=== PATIENT | male | born 1985 | race Caucasian/White ===

== ENCOUNTER 2016-12-24 12:24 | Outpatient (CLI) | payer OTHER ==
[2016-12-24] MEDS ORDERED: LIDOCAINE 1% 10 ML MDV ONE (13:06)
[2016-12-24] MEDS ORDERED: GADOPENTETATE DIMEGLUMINE 5 ML VIAL IVP ONE ×3 (13:07→14:02)
[2016-12-24] MEDS ORDERED: IOTHALAMATE MEGLUMINE 50 ML VIAL ONE (13:07)
[2016-12-24] MEDS ORDERED: LIDOCAINE 1% 10 ML MDV SUBQ ONE ×2 (14:00→14:02)
[2016-12-24] MEDS ORDERED: IOTHALAMATE MEGLUMINE 50 ML VIAL IVP ONE ×2 (14:00→14:02)
[2016-12-24] MEDS ORDERED: BUFFERED LIDOCAINE 10 ML SYRINGE IU ONE (14:02)
--- NOTE | 2016-12-24 16:35 | MRI Report ---
EXAM: RIGHT SHOULDER MRI ARTHROGRAM WITH CONTRAST EXAM DATE: 12/24/2016 02:28 PM. CLINICAL HISTORY: Right shoulder pain, not improving. Evaluate for rotator cuff tear. COMPARISON: None. TECHNIQUE: Multiplanar, multisequence T1-weighted and fluid-sensitive sequences of the shoulder after an arthrographic injection of dilute gadolinium, dictated under a separate exam. Other: None. FINDINGS: Acromioclavicular Region: The acromion is type II. The acromioclavicular joint is unremarkable. The c oracoacromial and coracoclavicular ligaments are intact. There is no contrast or fluid in the subacro mial/subdeltoid bursa. Glenohumeral Region: No subluxation. No loose bodies. The articular cartilage is unremarkable. The gl enohumeral ligaments and joint capsule are unremarkable. Bone Marrow: No fracture, marrow edema or bone lesions. Labrum: There is a 1.4 cm multilocular anterior inferior paralabral cyst which does not fill with con trast. Mild T2 hyperintensity through the base of the anterior inferior labrum, although contrast hutchison s not appear to extend into this. Remainder of the labrum appears intact. Biceps Tendon: The long head of the biceps tendon and biceps gildardo are intact. Musculature/Rotator Cuff: 0.9 cm 25-50% partial thickness tear in the distal supraspinatus attachment on the humerus, but is extra-articular and contrast does not extend into the defect. No edema or fat ty atrophy. Other: The subcutaneous tissues are unremarkable. IMPRESSION: 1. 1.4 cm anterior inferior paralabral cyst with mild T2 signal abnormality in the adjacent labrum, b ut no extension of contrast. Findings concerning for a labral tear, despite absence of contrast exten carrie. This may represent a chronic labral tear which has partially healed with granulation tissue. 2. Partial thickness tear distal supraspinatus attachment on the humerus appears extra-articular. Con trast does not extend into the defect. [facility] MUSCULOSKELETAL [facility]IOLOGY SECTION Referring Provider Line: [phone] SITE ID: [id number]
--- NOTE | 2016-12-24 17:33 | XRAY Report ---
RIGHT SHOULDER ARTHROGRAM: 12/24/2016 No comparison. INDICATION: Concern for rotator cuff tear not improving with treatment. TECHNIQUE - FINDINGS: Slasher Runner views demonstrate a right shoulder in normal alignment. Risks and benefits were discussed with the patient and he desired to proceed. A standard time/date w as performed prior to the procedure. The patient was prepped and draped in normal sterile fashion. Six mL of nonbuffered 1% lidocaine without epinephrine were injection into the soft tissues. The joint was accessed using a 20-gauge spinal needle, and 12 mL of fluid were injected into the righ t shoulder joint capsule under fluoroscopic guidance. The fluid contained 10 mL buffered 1% lidocaine, 10% Conray, and 0.1 mL Gadovist. There was no appreciable blood loss during the procedure. There were no immediate complications, and the patient was escorted to the MRI suite for further imaging. IMPRESSION: SUCCESSFUL RIGHT SHOULDER ARTHROGRAM. JOB #: [id number] EXT JOB #:[id number]
== END 2016-12-24 12:25 | disposition home or self-care (01) ==
LOC: DI 12:24
PROVIDERS: ATTEND Nurse Practitioner Family
DX: S43.431A Superior glenoid labrum lesion of right shoulder, initial encounter (principal); M75.101 Unspecified rotator cuff tear or rupture of right shoulder, not specified as traumatic
CPT/HCPCS: 23350; 73222; 77002; Q9961

== ENCOUNTER 2017-02-16 03:03 | Emergency (ER) | payer OTHER ==
--- NOTE | 2017-02-16 03:39 | ED Physician Documentation ---
PD HPI GI BLEED - Stated complaint Stated Complaint: MALE - Chief complaint Chief Complaint: General - History obtained from History obtained from: Patient - History of Present Illness Timing - onset: Yesterday Timing - details: Intermittant Pain level max: 0 Pain level now: 0 Associated symptoms: BRBPR Contributing factors: Recent antibiotics, NSAID use. No: Aspirin use Similar symptoms before: Work up / diagnostics (see below) Recently seen: Emergency Dept - Additional information Additional information: patient c/o BRBPR x 3 episodes tonight. He denies any pain, including abdominal and rectal pain. He had one episode of BRBPR yesterday morning (which is the first time he had this), and went to PMD. Per patient, the doctor did not detect blood in the stool, and his "red cell levels" were normal. He comes to ED because he had three more episodes shortly before ED arrival. He was T+R from this ED 02/12 for cough, fever, dyspnea and was treated for pneumonia (still taking zithromax as prescribed); he reports that those symptoms have resolved. He was also evaluated earlier this month at [facility] (outpatient setting) for chronic abdominal symptoms (frequent stools with episodes of abdominal discomfort) and had colonoscopy which revealed diverticulosis as well as polyps (which he says were biopsied). Review of Systems Constitutional: denies: Fever, Chills, Sweats Cardiac: reports: Reviewed and negative Respiratory: reports: Reviewed and negative GI: reports: Bloody / black stool. denies: Abdominal Pain, Abdominal Swelling, Nausea, Vomiting, Constipation, Diarrhea PD PAST MEDICAL HISTORY - Past Medical History Past Medical History: Yes GI: Colon polyps, Other (diverticulosis) - Past Surgical History General: Colonoscopy - Present Medications Home Medications: Ambulatory Orders Medication Instructions Recorded Confirmed Azithromycin 250 mg PO DAILY #4 tablet 02/12/17 Codeine Phosphate/Guaifenesin 10 ml PO Q6HR PRN #1 bottle 02/12/17 [Guaifen-Codeine 200-20 mg/10Ml] - Allergies Allergies/Adverse Reactions: Allergies Allergy/AdvReac Type Severity Reaction Status Date / Time No Known Drug Allergies Allergy Verified 02/16/17 03:08 PD ED PE NORMAL - Vitals Vital signs reviewed: Yes - General General: Alert and oriented X 3, No acute distress, Well developed/nourished - Cardiac Cardiac: RRR, No murmur - Respiratory Respiratory: No respiratory distress, Clear bilaterally - Abdomen Abdomen: Normal bowel sounds, Soft, Non tender, Non distended - Derm Derm: Normal color PD ED PE EXPANDED - Rectal Rectal: Heme Occult Pos - QC + (grossly bloody specimen with strong guaiac (+) reaction ). No: Hemorrhoid, Fissure Results - Vitals Vitals: Vital Signs - 24 hr 02/16/17 02/16/17 03:06 05:40 Temperature 36.8 C Heart Rate 81 80 Respiratory 16 18 Rate Blood Pressure 161/106 H 143/88 H O2 Saturation 98 99 Oxygen O2 Source Room air - Labs Labs: Laboratory Tests 02/16/17 04:50 WBC 13.4 H RBC 5.21 Hgb 15.3 Hct 45.3 MCV 86.9 MCH 29.3 MCHC 33.7 RDW 12.3 Plt Count 386 MPV 8.1 Neut # 7.9 H Lymph # 3.9 H [place] # 1.0 Eos # 0.3 Baso # 0.2 H Absolute Nucleated RBC 0.01 Nucleated RBC % 0.1 PD MEDICAL DECISION MAKING - ED course Complexity details: reviewed old records, reviewed results, re-evaluated patient , considered differential, d/w patient ED course: stable H/H and mildly elevated WBC (no significant changes compared to 02/12 results). No pain c/o and nontender on abd. exam. Departure - Departure Disposition: 01 Home, Self Care Clinical Impression: Hematochezia Condition: Good Instructions: ED Hematochezia Stable Follow-Up: GLENYS Liu [Provider Group] Discharge Date/Time: 02/16/17 05:40
[2017-02-16 05:16] LABS: BASOPHILS # (AUTO) 0.2 10^3/uL (0.0-0.1); BASOPHILS % (AUTO) 1.2 %; EOSINOPHILS # (AUTO) 0.3 10^3/uL (0.0-0.7); EOSINOPHILS % (AUTO) 2.5 %; HCT - HEMATOCRIT 45.3 % (42.0-52.0); HGB - HEMOGLOBIN 15.3 g/dL (14.0-18.0); LYMPHOCYTES # (AUTO) 3.9 10^3/uL (1.5-3.5); LYMPHOCYTES % (AUTO) 29.3 %; MEAN CORPUSCULAR HEMOGLOBIN 29.3 pg (27.0-31.0); MEAN CORPUSCULAR HGB CONC 33.7 g/dL (32.0-36.0); MEAN CORPUSCULAR VOLUME 86.9 fL (80.0-94.0); MEAN PLATELET VOLUME 8.1 fL (7.4-11.4); MONOCYTES % (AUTO) 7.7 %; NEUTROPHILS # (AUTO) 7.9 10^3/uL (1.5-6.6); NEUTROPHILS % (AUTO) 59.3 %; NUCLEATED RED BLOOD CELLS AUTO 0.1 /100WBC; RED BLOOD COUNT 5.21 10^6/uL (4.70-6.10); RED CELL DISTRIBUTION WIDTH 12.3 % (12.0-15.0); UNCORRECTED WHITE BLOOD COUNT 13.4 x10^3/uL; WHITE BLOOD COUNT 13.4 x10^3/uL (4.8-10.8)
[2017-02-16 06:01] VITALS: BP 143/88
== END 2017-02-16 05:40 | disposition home or self-care (01) ==
LOC: ED 03:03
DX: K92.1 Melena (principal); Z86.010 Personal history of colon polyps; D72.829 Elevated white blood cell count, unspecified
CPT/HCPCS: 36415; 85025; 99283

== ENCOUNTER 2017-03-13 16:43 | Emergency (ER) | payer OTHER ==
[2017-03-13 16:55] VITALS: BP 173/102
[2017-03-13 17:09] LABS: BILIRUBIN,URINE NEGATIVE (NEGATIVE); CLARITY,URINE CLEAR (CLEAR); GLUCOSE, URINE (UA) NEGATIVE (NEGATIVE); KETONES,URINE (UA) NEGATIVE (NEGATIVE); LEUKOCYTE ESTERASE, URINE NEGATIVE (NEGATIVE); NITRITE,URINE NEGATIVE (NEGATIVE); OCCULT BLOOD,URINE NEGATIVE (NEGATIVE); PH,URINE 6.5 PH (5.0-7.5); PROTEIN,URINE NEGATIVE (NEGATIVE); UROBILINOGEN,URINE 0.2 (NORMAL) E.U./dL (NORMAL)
--- NOTE | 2017-03-13 19:15 | Ultrasound Report ---
EXAM: SCROTAL ULTRASOUND EXAM DATE: 03/13/2017 06:54 PM. CLINICAL HISTORY: Left testicle pain. COMPARISON: None. TECHNIQUE: Real-time scanning was performed with static images obtained. Both color-flow and Doppler spectral analysis were utilized. FINDINGS: Right: Testis: 5.1 x 3.5 x 2.7 cm. Normal size and echotexture. No mass or abnormal blood flow. Small focus of right testicular calcification measuring 2 mm at the inferior aspect. Epididymis: 0.8 x 0.9 x 1.1 cm. Normal size and echotexture. No mass or abnormal blood flow. Hydrocele: None. Varicocele: None. Left: Testis: 5 x 3.5 x 2.6 cm. Normal size and echotexture. No mass or abnormal blood flow. A few left etrry ticular microlithiasis. Epididymis: 1.1 x 0.8 x 1.4 cm. Normal size and echotexture. No solid mass or abnormal blood flow. Sm all left epididymal cyst measuring 4 x 3 x 3 mm. Hydrocele: None. Varicocele: None. IMPRESSION: 1. Small focus of right testicular calcification measuring 2 mm at the inferior aspect. 2. A few left testicular microlithiasis. 3. Small left epididymal cyst measuring 4 x 3 x 3 mm. 4. No acute findings seen. [facility] Referring Provider Line: [phone] SITE ID: [id number]
--- NOTE | 2017-03-13 19:15 | Ultrasound Preliminary Report ---
Exam: US TESTICLE W/DOPPLER IMPRESSION: 1. Small focus of right testicular calcification measuring 2 mm at the inferior aspect. 2. A few left testicular microlithiasis. 3. Small left epididymal cyst measuring 4 x 3 x 3 mm. 4. No acute findings seen. [facility] SITE ID: [id number]
--- NOTE | 2017-03-13 20:23 | ED Physician Documentation ---
PD HPI MALE - Stated complaint Stated Complaint: MALE - Chief complaint Chief Complaint: General - History obtained from History obtained from: Patient - History of Present Illness Timing - onset: How many days ago (3) Timing - duration: Days (3) Timing - details: Gradual onset Pain level max: 4 Pain level now: 2 Associated symptoms: Testiclar pain (L) PD HPI MALE CONTRIB FACTORS: Sexually active (, no changes) Similar symptoms before: Has not had sx before Recently seen: Not recently seen - Additional information Additional information: Patient is a 32-year-old gentleman who presents to the emergency department with left testicular pain for the past 3 days. Describes as a dull ache. It is constant. Nothing really changes the pain. No changes in sexual partners. No discharge. No masses. Review of Systems Constitutional: denies: Fever, Chills Respiratory: denies: Cough GI: denies: Nausea, Vomiting, Diarrhea : denies: Dysuria, Frequency, Hesitancy, Testicular mass Skin: denies: Rash Musculoskeletal: denies: Neck pain, Back pain PD PAST MEDICAL HISTORY - Past Medical History Past Medical History: No GI: Colon polyps, Other - Past Surgical History Past Surgical History: No General: Colonoscopy - Present Medications Home Medications: Ambulatory Orders Medication Instructions Recorded Confirmed Azithromycin 250 mg PO DAILY #4 tablet 02/12/17 03/13/17 Codeine Phosphate/Guaifenesin 10 ml PO Q6HR PRN #1 bottle 02/12/17 03/13/17 [Guaifen-Codeine 200-20 mg/10Ml] - Allergies Allergies/Adverse Reactions: Allergies Allergy/AdvReac Type Severity Reaction Status Date / Time No Known Drug Allergies Allergy Verified 02/16/17 03:08 - Social History Does the pt smoke?: No Smoking Status: Never smoker Does the pt drink ETOH?: Yes ETOH Use: Beer Does the pt have substance abuse?: No - Immunizations Immunizations are current?: Yes - POLST Patient has POLST: No PD ED PE NORMAL - Vitals Vital signs reviewed: Yes - General General: Alert and oriented X 3, No acute distress - Cardiac Cardiac: RRR - Respiratory Respiratory: No respiratory distress, Clear bilaterally - Abdomen Abdomen: Soft, Non tender, Non distended - Male Male : Other (normal exam of the penis, scrotum and testicles.) - Derm Derm: Warm and dry - Neuro Neuro: Alert and oriented X 3 - Psych Psych: Normal mood, Normal affect Results - Vitals Vitals: Vital Signs - 24 hr 03/13/17 16:48 Temperature 36.4 C L Heart Rate 66 Respiratory 20 Rate Blood Pressure 173/102 H O2 Saturation 95 Oxygen O2 Source Room air - Labs Labs: Laboratory Tests 03/13/17 17:00 Urine Color YELLOW Urine Clarity CLEAR Urine pH 6.5 Ur Specific [place] 1.020 Urine Protein NEGATIVE Urine Glucose (UA) NEGATIVE Urine Ketones NEGATIVE Urine Occult Blood NEGATIVE Urine Nitrite NEGATIVE Urine Bilirubin NEGATIVE Urine Urobilinogen 0.2 (NORMAL) Ur Leukocyte Esterase NEGATIVE Ur Microscopic Review NOT INDICATED Urine Culture Comments NOT INDICATED - Rads (name of study) testicular US Radiology: Prelim report reviewed, EMP read contemporaneously, See rad report ( Small focus of right testicular calcification measuring 2 mm at the inferior aspect. A few left testicular microlithiasis. Small left epididymal cyst measuring 4 x 3 x 3 mm. No acute findings seen. ) PD MEDICAL DECISION MAKING - ED course Complexity details: reviewed results, re-evaluated patient, considered differential, d/w patient ED course: Patient is a 32-year-old male who presents to the emergency department with left testicular pain. No acute findings on ultrasound of the abdomen a small left epididymal cyst. Normal external exam physically. He states the pain is well-controlled with Motrin and Tylenol. No evidence of torsion, epididymitis. We will have him follow-up with his doctor for further evaluation and care. May benefit from urology referral if his symptoms continue. Patient counseled regarding signs and symptoms for which I believe and urgent re-evaluation would be necessary. Patient with good understanding of and agreement to plan and is comfortable going home at this time This document was made in part using voice recognition software. While efforts are made to proofread this document, sound alike and grammatical errors may occur. Departure - Departure Disposition: 01 Home, Self Care Clinical Impression: Testicular pain, left Condition: Good Instructions: ED Testicular Pain [facility] Follow-Up: GLENYS Liu [Provider Group] - Within 3 Days Comments: The cause of your symptoms is unclear today. Your urinalysis and ultrasound did not reveal any acute abnormalities for your pain. Follow-up with your doctor for further care. They may refer you to urology. Return if you worsen Discharge Date/Time: 03/13/17 20:29
== END 2017-03-13 20:29 | disposition home or self-care (01) ==
LOC: ED 16:43
DX: N50.812 Left testicular pain (principal); N50.3 Cyst of epididymis
CPT/HCPCS: 76870; 81001; 81003; 87086; 93975; 99281; 99283

== ENCOUNTER 2017-08-06 23:28 | Inpatient (IN) | payer OTHER ==
[2017-08-06] MEDS ORDERED: MORPHINE 10 MG/ML VIAL IVP STA (23:51)
[2017-08-07] MEDS ORDERED: IOPAMIDOL-300 100 ML VIAL ONE (00:11)
--- NOTE | 2017-08-07 00:26 | ED Physician Documentation ---
PD HPI ABD PAIN - Stated complaint Stated Complaint: ABD PAIN - Chief complaint Chief Complaint: Abd Pain - History obtained from History obtained from: Patient - History of Present Illness Timing - onset: How many hours ago (4) Timing - details: Abrupt onset, Still present Quality: Cramping, Aching, Sharp Location: All over / everywhere Worsened by: Position, Palpation Associated symptoms: Nausea. No: Fever, Vomiting Similar symptoms before: Work up / diagnostics, Treatment Recently seen: Not recently seen - Additional information Additional information: Patient is a 32 year old male presenting to the emergency department for abdominal pain. patient states that started about 4 hours ago and has become progressively worse. patient states that it feels like when he had an obstruction when he was younger. Patient states that at that time he had to have part of his intestines removed. Review of Systems Constitutional: denies: Fever, Chills Cardiac: denies: Chest pain / pressure, Palpitations Respiratory: denies: Dyspnea, Cough GI: reports: Abdominal Pain, Nausea. denies: Abdominal Swelling, Vomiting, Constipation, Diarrhea PD PAST MEDICAL HISTORY - Past Medical History GI: Colon polyps, Other Other Past Medical History: bowel blockage - Past Surgical History Past Surgical History: No General: Colonoscopy - Present Medications Home Medications: Ambulatory Orders Medication Instructions Recorded Confirmed No Known Home Medications [No 08/07/17 08/07/17 Known Home Medications] - Allergies Allergies/Adverse Reactions: Allergies Allergy/AdvReac Type Severity Reaction Status Date / Time No Known Drug Allergies Allergy Verified 08/06/17 23:34 - Social History Does the pt smoke?: No Smoking Status: Never smoker Does the pt drink ETOH?: Yes Does the pt have substance abuse?: No - Immunizations Immunizations are current?: Yes - POLST Patient has POLST: No PD ED PE NORMAL - Vitals Vital signs reviewed: Yes - General General: Alert and oriented X 3 - HEENT HEENT: Atraumatic - Cardiac Cardiac: RRR - Respiratory Respiratory: No respiratory distress - Derm Derm: Normal color, Warm and dry - Extremities Extremities: No deformity - Neuro Neuro: Alert and oriented X 3, No motor deficit, Normal speech Eye Opening: Spontaneous Motor: Obeys Commands Verbal: Oriented GCS Score: 15 - Psych Psych: Normal mood PD ED PE EXPANDED - General General: Alert, In Pain - HEENT HEENT: Dry mucous membranes - Abdomen Abdomen: Tender to palpation, Generalized/diffuse, Hepatomegaly, Surgical scars. No: Rebound Results - Vitals Vitals: Vital Signs - 24 hr 08/06/17 08/06/17 08/07/17 23:31 23:59 01:14 Heart Rate 70 78 81 Respiratory 22 16 16 Rate Blood Pressure 148/97 H 149/105 H 128/81 H O2 Saturation 100 98 95 08/07/17 08/07/17 08/07/17 02:13 02:29 02:57 Heart Rate 75 75 80 Respiratory 18 16 14 Rate Blood Pressure 124/78 124/78 127/85 H O2 Saturation 97 99 98 Oxygen O2 Source Room air - Labs Labs: Laboratory Tests 08/06/17 08/07/17 08/07/17 00:04 00:04 01:15 WBC 13.8 H RBC 5.22 Hgb 15.3 Hct 45.2 MCV 86.6 MCH 29.3 MCHC 33.9 RDW 12.6 Plt Count 332 MPV 8.5 Neut # (Auto) 10.4 H Lymph # (Auto) 2.4 [place] # (Auto) 0.9 Eos # (Auto) 0.1 Baso # (Auto) 0.1 Absolute Nucleated RBC 0.01 Nucleated RBC % 0.1 Sodium 135 Potassium 3.7 Chloride 97 L Carbon Dioxide 24 Anion Gap 14.0 H BUN 17 Creatinine 0.9 Estimated GFR (MDRD) 97 Glucose 146 H Calcium 9.8 Total Bilirubin 1.1 H AST 34 ALT 42 Alkaline Phosphatase 48 Total Protein 8.4 H Albumin 4.6 Globulin 3.8 Albumin/Globulin Ratio 1.2 Lipase 24 Urine Color YELLOW Urine Clarity CLEAR Urine pH 7.0 Ur Specific [place] 1.010 Urine Protein NEGATIVE Urine Glucose (UA) NEGATIVE Urine Ketones 40 H Urine Occult Blood NEGATIVE Urine Nitrite NEGATIVE Urine Bilirubin NEGATIVE Urine Urobilinogen 0.2 (NORMAL) Ur Leukocyte Esterase NEGATIVE Ur Microscopic Review NOT INDICATED Urine Culture Comments NOT INDICATED - Rads (name of study) ct abd pelvis Radiology: Final report received (findings consistent with sbo) PD MEDICAL DECISION MAKING - ED course Complexity details: reviewed old records, reviewed results, re-evaluated patient , considered differential, d/w patient, d/w optimization consultant ED course: Patient was seen and examined at bedside. IV access was gained labs were drawn. patient was treated with 10mg of morphine and imaging was ordered. Patient's pain improved to a 10. When patient returned from imaging he was started on a fluid bolus. Patient was found to have sbo. Patient stated that his pain had returned. Case was discussed with the guard immigration surgeon who stated that he would likely take the patient to the OR today but to admit to hospitalist. Case was discussed with hospitalist and patient was admitted to her for further evaluation and care. Departure - Departure Disposition: 66 [facility] DC/Xfer Clinical Impression: Small bowel obstruction Condition: Stable
[2017-08-07 00:29] LABS: ALBUMIN 4.6 g/dL (3.2-5.5); ALBUMIN/GLOBULIN RATIO 1.2 (1.0-2.2); BILIRUBIN,TOTAL 1.1 mg/dL (0.2-1.0); CALCIUM 9.8 mg/dL (8.5-10.3); CREATININE 0.9 mg/dL (0.6-1.2); TOTAL PROTEIN 8.4 g/dL (6.7-8.2)
[2017-08-07] MEDS ORDERED: IOPAMIDOL-300 100 ML VIAL IVP ONE (01:08)
[2017-08-07 01:24] LABS: BILIRUBIN,URINE NEGATIVE (NEGATIVE); GLUCOSE, URINE (UA) NEGATIVE (NEGATIVE); KETONES,URINE (UA) 40 mg/dL (NEGATIVE); LEUKOCYTE ESTERASE, URINE NEGATIVE (NEGATIVE); NITRITE,URINE NEGATIVE (NEGATIVE); OCCULT BLOOD,URINE NEGATIVE (NEGATIVE); PROTEIN,URINE NEGATIVE (NEGATIVE); UROBILINOGEN,URINE 0.2 (NORMAL) E.U./dL (NORMAL)
[2017-08-07 01:26] LABS: CLARITY,URINE CLEAR (CLEAR)
[2017-08-07] MEDS ORDERED: MORPHINE 10 MG/ML VIAL IVP STA (02:14)
[2017-08-07] MEDS ORDERED: SODIUM CHLORIDE 0.9% 1,000 ML IV ONE (02:15)
--- NOTE | 2017-08-07 02:17 | CT Report ---
EXAM: CT ABDOMEN AND PELVIS EXAM DATE: 08/07/2017 01:13 AM. CLINICAL HISTORY: Abdominal pain, hx of bowel obstruction. Prior surgeries. COMPARISONS: None. TECHNIQUE: Routine helical CT imaging was performed through the abdomen and pelvis. IV contrast: 100M L ISOVUE 300. Enteric contrast: No. Reconstructions: Coronal and sagittal. In accordance with CT protocol optimization, one or more of the following dose reduction techniques w ere utilized for this exam: automated exposure control, adjustment of mA and/or KV based on patient s ize, or use of iterative reconstructive technique. FINDINGS: Lung Bases: Mild bibasilar atelectasis. Liver: Possible fatty infiltration. Gallbladder/Bile Ducts: Unremarkable. Spleen: Enlarged at 15.8 cm. Pancreas: Normal. Adrenal Glands: Normal. Kidneys: Normal. No masses or hydronephrosis. Peritoneal Cavity/Bowel: Mildly dilated small bowel loops with air-fluid levels and decompressed dist al loops, consistent with small bowel obstruction. Transition appears to be in the left mid to lower abdomen. Colonic diverticula with no definite evidence of diverticulitis. Normal-sized mesenteric lym ph nodes. Trace amount of free fluid. No free air. Appendix appears normal. Pelvic Organs: Normal. The bladder and visualized pelvic organs are within normal limits. Vasculature: No aneurysms or other significant abnormality. Bones: No significant abnormality. Other: None. IMPRESSION: 1. Small bowel obstruction. Transition appears to be in the left mid to lower abdomen. 2. Colonic diverticulosis. No definite diverticulitis. 3. Fatty liver with at least mild splenomegaly. [facility] Referring Provider Line: [phone] SITE ID: [id number]
[2017-08-07] MEDS ORDERED: MORPHINE 2 MG/ML SYRINGE IVP PRN (03:52)
[2017-08-07] MEDS ORDERED: ONDANSETRON 4 MG/2 ML VIAL IVP PRN (03:52)
[2017-08-07] MEDS ORDERED: ACETAMINOPHEN 1,000 MG/100 ML 100 ML IV PRN (03:56)
[2017-08-07] MEDS ORDERED: D5NS W/20 MEQ KCL 1,000 ML IV SCH (04:00)
[2017-08-07] MEDS ORDERED: LIDOCAINE 2% URO-JET 5 ML SYRINGE UR ONE (04:16)
[2017-08-07] MEDS: SODIUM CHLORIDE FLUSH 0.9% 10 ML SYRINGE IVP PRN ×2 (04:29→06:20)
[2017-08-07 04:31] LABS: WHITE BLOOD COUNT 13.8 x10^3/uL (4.8-10.8)
[2017-08-07 04:32] LABS: HGB - HEMOGLOBIN 15.3 g/dL (14.0-18.0); MEAN CORPUSCULAR HEMOGLOBIN 29.3 pg (27.0-31.0); MEAN CORPUSCULAR HGB CONC 33.9 g/dL (32.0-36.0); MEAN CORPUSCULAR VOLUME 86.6 fL (80.0-94.0); MEAN PLATELET VOLUME 8.5 fL (7.4-11.4); PLT - PLATELET COUNT 332 10^3/uL (130-450); RED BLOOD COUNT 5.22 10^6/uL (4.70-6.10); RED CELL DISTRIBUTION WIDTH 12.6 % (12.0-15.0)
[2017-08-07 04:34] LABS: BASOPHILS # (AUTO) 0.1 10^3/uL (0.0-0.1); BASOPHILS % (AUTO) 0.5 %; EOSINOPHILS # (AUTO) 0.1 10^3/uL (0.0-0.7); EOSINOPHILS % (AUTO) 0.4 %; LYMPHOCYTES # (AUTO) 2.4 10^3/uL (1.5-3.5); LYMPHOCYTES % (AUTO) 17.6 %; MONOCYTES # (AUTO) 0.9 10^3/uL (0.0-1.0); MONOCYTES % (AUTO) 6.3 %; NEUTROPHILS # (AUTO) 10.4 10^3/uL (1.5-6.6); NEUTROPHILS % (AUTO) 75.2 %
[2017-08-07 05:29] LABS: BASOPHILS % (AUTO) 0.3 %; EOSINOPHILS % (AUTO) 0.2 %; LYMPHOCYTES # (AUTO) 1.4 10^3/uL (1.5-3.5); LYMPHOCYTES % (AUTO) 10.1 %; MEAN CORPUSCULAR HEMOGLOBIN 29.9 pg (27.0-31.0); MEAN CORPUSCULAR HGB CONC 34.3 g/dL (32.0-36.0); MEAN CORPUSCULAR VOLUME 87.2 fL (80.0-94.0); MEAN PLATELET VOLUME 8.1 fL (7.4-11.4); MONOCYTES # (AUTO) 1.2 10^3/uL (0.0-1.0); MONOCYTES % (AUTO) 8.2 %; NEUTROPHILS # (AUTO) 11.5 10^3/uL (1.5-6.6); NEUTROPHILS % (AUTO) 81.2 %; PLT - PLATELET COUNT 303 10^3/uL (130-450); RED BLOOD COUNT 5.02 10^6/uL (4.70-6.10); RED CELL DISTRIBUTION WIDTH 12.7 % (12.0-15.0); WHITE BLOOD COUNT 14.2 x10^3/uL (4.8-10.8)
[2017-08-07 05:43] LABS: ALBUMIN 4.1 g/dL (3.2-5.5); ALKALINE PHOSPHATASE 44 IU/L (42-121); ALT ALANINE AMINOTRANSFERASE 41 IU/L (10-60); AST ASPARTATE AMINOTRANSFERASE 30 IU/L (10-42); BUN - BLOOD UREA NITROGEN 17 mg/dL (6-20); CALCIUM 8.9 mg/dL (8.5-10.3); CARBON DIOXIDE - CO2 23 mmol/L (21-32); CHLORIDE 101 mmol/L (101-111); CREATININE 0.8 mg/dL (0.6-1.2); GFR - MDRD 111 (>89); GLUCOSE 158 mg/dL (70-100); MAGNESIUM 1.7 mg/dL (1.7-2.8); SODIUM 132 mmol/L (135-145); TOTAL PROTEIN 7.6 g/dL (6.7-8.2)
--- NOTE | 2017-08-07 05:43 | XRAY Report ---
EXAM: CHEST RADIOGRAPHY EXAM DATE: 08/07/2017 05:07 AM. CLINICAL HISTORY: NG tube placement. COMPARISON: 02/12/2017. TECHNIQUE: 1 view. FINDINGS: Lungs/Pleura: No alveolar consolidation or pleural effusion seen. No pneumothorax. Mediastinum: Within exam limitations, the cardiomediastinal contour is normal. Other: Nasogastric tube tip in the proximal stomach. IMPRESSION: 1. No acute abnormality seen in the chest. 2. NG tube in the proximal stomach. [facility] Referring Provider Line: [phone] SITE ID: [id number]
--- NOTE | 2017-08-07 05:43 | XRAY Preliminary Report ---
Exam: XR CHEST 1 VIEW X-RAY IMPRESSION: 1. No acute abnormality seen in the chest. 2. NG tube in the proximal stomach. [facility] SITE ID: [id number]
[2017-08-07 06:12] LABS: BILIRUBIN,DIRECT < 0.1 mg/dL (0.1-0.5)
[2017-08-07] MEDS ORDERED: PANTOPRAZOLE 40 MG VIAL IVP SCH (07:00)
[2017-08-07 08:29] VITALS: BP 112/65
--- NOTE | 2017-08-07 08:57 | HISTORY & PHYSICAL EXAMINATION ---
DATE OF SERVICE: 08/07/2017 Physician: Moni Bahena MD HISTORY OF PRESENT ILLNESS: This is a 32-year-old white male with a past history of bowel surgery for obstruction 10 years ago. He otherwise has a negative past medical history and takes no medications. The patient states that he developed rapidly worsening abdominal pain approximately 5 hours ago. There was no nausea or vomiting, fever, diarrhea. He presented to the emergency room and imaging has shown he has a small-bowel obstruction and he is being admitted for this. PAST MEDICAL HISTORY: Bowel surgery 10 years ago, details are not known. MEDICATIONS: None. ALLERGIES: NONE. SOCIAL HISTORY: The patient is a rare smoker, drinks rare alcohol, uses no illicit drugs. Approximately 5 weeks ago, he changed to a healthy diet and began exercising at his doctor's advice, due to having borderline HTN. FAMILY HISTORY: No inherited diseases. REVIEW OF SYSTEMS: Comprehensive review of systems was performed and the pertinent positives are above, the rest are negative. PHYSICAL EXAMINATION: GENERAL: White male in mild distress after receiving narcotics. VITAL SIGNS: Blood pressure 122/60, pulse of 80 and sinus rhythm. Room air saturation 100% with a respiratory rate of 16, afebrile. HEENT: Unremarkable. NECK: Without JVD or carotid bruits. LUNGS: Clear. HEART: Sounds normal. ABDOMEN: Evidence of prior scar, decreased bowel sounds, tender to light palpation. No guarding or rebound. Possible splenomegaly. EXTREMITIES: No clubbing, cyanosis or edema. NEUROLOGIC: Intact. LABORATORY DATA: Sodium 135, potassium 3.5, anion gap 14. No lactic acid was done. BUN 17, creatinine 0.9. Normal liver tests, bilirubin 1.1. No INR was done. White blood count 13.8 with a left shift, hemoglobin 15.3, platelet count normal at 332. Urinalysis had high ketones, otherwise unremarkable. Abdomen CT showed small-bowel obstruction with dilated loops of bowel, no free air. DIAGNOSES 1. Small-bowel obstruction. 2. History of bowel surgery. PLAN: Admit the patient. Begin bowel rest with n.p.o. status and NG tube to low suction for bowel decompression. Start IV fluids for hydration while he is n.p.o. Surgical consult for potential surgical intervention. Obtain magnesium and lactic acid levels. CODE STATUS: FULL CODE. DEEP VENOUS THROMBOSIS PROPHYLAXIS: SCDs. ATTESTATION: The patient is expected to be discharged or transferred to another facility within 96 hours: Yes. TD: 08/07/2017 04:14 [place]
[2017-08-07] MEDS ORDERED: SODIUM CHLORIDE FLUSH 0.9% 10 ML SYRINGE IVP SCH (09:00)
--- NOTE | 2017-08-07 10:20 | DISCHARGE SUMMARY ---
Discharge Summary Admit Date: 08/07/17 Discharge Date: 08/07/17 Discharging Provider: SUNSHINE Masterson Primary Care Provider: Code Status: Attempt Resuscitation Condition at Discharge: Good Discharge Disposition: 01 Home, Self Care - DIAGNOSES Admission Diagnoses: Unspecified intestinal obstruction, unspecified as to partial versus complete obstruction (K56.609) Personal history of other diseases of the digestive system (Z87.19) Discharge Diagnoses with Status of Each Condition: Unspecified intestinal obstruction, unspecified as to partial versus complete obstruction (K56.609) Personal history of other diseases of the digestive system (Z87.19) Diverticulosis - HPI History of Present Illness: Faizan Sutherland is a 32-year old male with a past medical history of bowel surgery for SBO ~10 years ago and otherwise a healthy patient. The patient states that he developed rapidly worsening abdominal pain that started about 5 hours prior to coming to the ED. He denies nausea, vomiting, fever, chills, a cough or diarrhea. Labs reveal a sodium of 135, K+ of 3.5, BUN of 17, creatinine of 0.9, normal LFTs, WBC count of 13.8 with a left shift, hemoglobin of 15.3, platelet count of 332, and a urine sample showed high ketones, otherwise unremarkable. An abdominal CT showed small-bowel obstruction with dilated loops of bowel and no free air, which confirmed his physical findings. He will be admitted to the Hospitalist service with a general surgery consult. He will have an NG tube for decompression. - HOSPITAL COURSE Hospital Course: The SBO resolved on its own and there were not any procedures performed and/or surgery. His NG tube was discontinued and he was tolerating a regular diet prior to discharge. There were no prescriptions given and the patient denied the need for a work note. General surgery, Dr. Lang evaluated the patient and follow up imaging noted some improvement. - ALLERGIES Allergies/Adverse Reactions: Allergies Allergy/AdvReac Type Severity Reaction Status Date / Time No Known Drug Allergies Allergy Verified 08/06/17 23:34 - MEDICATIONS Home Medications: Ambulatory Orders Medication Instructions Recorded Confirmed No Known Home Medications [No 08/07/17 08/07/17 Known Home Medications] - PHYSICAL EXAM AT DISCHARGE General Appearance: positive: No acute distress, Alert Eyes Bilateral: positive: Normal inspection, PERRL ENT: positive: ENT inspection nml, Pharynx nml, No signs of dehydration Neck: positive: Nml inspection, Thyroid nml, No JVD, Trachea midline Respiratory: positive: Chest non-tender, No respiratory distress, Breath sounds nml Cardiovascular: positive: Regular rate & rhythm, No murmur, No gallop Peripheral Pulses: positive: 2+ Abdomen: positive: Non-tender, No organomegaly, Nml bowel sounds Back: positive: Nml inspection Skin: positive: Color nml, No rash, Warm, Dry Extremities: positive: Non-tender, Full ROM, Nml appearance Neurologic/Psychiatric: positive: Oriented x3, CN's nml (2-12), Motor nml, Sensation nml, Mood/affect nml Reflexes: Bicep (R): 3+, Bicep (L): 3+ - LABS Result Diagrams: 08/07/17 05:15 08/07/17 05:15 - DIAGNOSTIC IMAGING Diagnostic Imaging Results: Prelim report reviewed, Final report reviewed Diagnostic Imaging Results Comments: EXAM: CT ABDOMEN AND PELVIS EXAM DATE: 08/07/2017 01:13 AM. CLINICAL HISTORY: Abdominal pain, hx of bowel obstruction. Prior surgeries. COMPARISONS: None. TECHNIQUE: Routine helical CT imaging was performed through the abdomen and pelvis. IV contrast: 100ML ISOVUE 300. Enteric contrast: No. Reconstructions: Coronal and sagittal. In accordance with CT protocol optimization, one or more of the following dose reduction techniques were utilized for this exam: automated exposure control, adjustment of mA and/or KV based on patient size, or use of iterative reconstructive technique. FINDINGS: Lung Bases: Mild bibasilar atelectasis. Liver: Possible fatty infiltration. Gallbladder/Bile Ducts: Unremarkable. Spleen: Enlarged at 15.8 cm. Pancreas: Normal. Adrenal Glands: Normal. Kidneys: Normal. No masses or hydronephrosis. Peritoneal Cavity/Bowel: Mildly dilated small bowel loops with air-fluid levels and decompressed distal loops, consistent with small bowel obstruction. Transition appears to be in the left mid to lower abdomen. Colonic diverticula with no definite evidence of diverticulitis. Normal-sized mesenteric lymph nodes. Trace amount of free fluid. No free air. Appendix appears normal. Pelvic Organs: Normal. The bladder and visualized pelvic organs are within normal limits. Vasculature: No aneurysms or other significant abnormality. Bones: No significant abnormality. Other: None. IMPRESSION: 1. Small bowel obstruction. Transition appears to be in the left mid to lower abdomen. 2. Colonic diverticulosis. No definite diverticulitis. 3. Fatty liver with at least mild splenomegaly. EXAM: CHEST RADIOGRAPHY EXAM DATE: 08/07/2017 05:07 AM. CLINICAL HISTORY: NG tube placement. COMPARISON: 02/12/2017. TECHNIQUE: 1 view. FINDINGS: Lungs/Pleura: No alveolar consolidation or pleural effusion seen. No pneumothorax. Mediastinum: Within exam limitations, the cardiomediastinal contour is normal. Other: Nasogastric tube tip in the proximal stomach. IMPRESSION: 1. No acute abnormality seen in the chest. 2. NG tube in the proximal stomach. - FOLLOW UP Follow Up: Disposition: 01 Home, Self Care Condition: Good Diet: Regular Activity Restrictions: No Restrictions Shower Restrictions: No Driving Restrictions: No Weight Bearing: Full Weight Additional Instructions or Follow Up instructions: You were admitted for abdominal pain and found to have a small bowel obstruction. An NG tube was placed, but you evacuated most stomach contents just prior to that by vomiting. A follow up image was obtained and oral contrast and this is pending. Since you are improving, and you have moved your bowels, it is likely that you will continue to improve. GI, Dr. Lang met with you and did not recommend any invasive procedures or surgeries. Stay well hydrated. You should see your PCP within one week. - TIME SPENT Time Spent in Discharge (Minutes): 45
--- NOTE | 2017-08-07 13:15 | XRAY Report ---
SMALL BOWEL FOLLOW THROUGH: 08/07/2017 HISTORY: Abdominal pain. CT scan abdomen and pelvis 08/07/2017 suggests small- bowel obstruction. COMPARISON: 08/07/2017 CT. FINDINGS: Preliminary agricultural equipment salesperson film shows a nasogastric tube ending in the stomach. Residual contrast seen in the bladder from prior CT. 200 mL of dilute Gastrografin are administered via NG and sequential images obtained. At 60 minutes, contrast is seen throughout small bowel and colon as far distally as the junction of the descending colon and sigmoid. No bowel dilation/obstruction seen. IMPRESSION: NO EVIDENCE OF SMALL-BOWEL OBSTRUCTION BY GASTROGRAFIN SMALL BOWEL FOLLOW THROUGH. TD: 08/07/2017 13:06 ALVARADO
--- NOTE | 2017-08-07 21:40 | CONSULTATION NOTE ---
Referring Provider Name of Referring Provider:: Dr. Walls Consult Date: 08/07/17 Chief Complaint - Chief Complaint Chief Complaint: Abdominal pain History of Present Illness - Admitted From Admitted From:: [facility] ED - History Obtained From Records Reviewed: Yes History obtained from: Patient Exam Limitations: None - History of Present Illness HPI Comment/Other: This very pleasant 32-year-old male was examined by me in room 2211 at [facility] Med[facility] unit. I was called in the early hours of the morning today as Dr. Walls felt that this patient had a small bowel obstruction as well as was evidenced by the CT scan that have been ordered. Prior to coming into the emergency department the patient had a 4-6 hour history of worsening abdominal pain and he states that it felt much like it felt prior to his previous surgery for bowel obstruction. I do not have any records of that operation. I believe it was an intussusception although the patient himself cannot tell me for sure. This morning when I saw the patient he was markedly improved and stated that the pain that he had last night was almost nonexistent. Additionally, he was passing gas. History - Past Medical History GI: reports: Colon polyps, Other MRSA Hx?: No Other Past Medical History: bowel blockage; IBS - Past Surgical History General: reports: Bowel surgery, Colonoscopy - POLST Patient has POLST: No Meds/Allgy - Home Medications Home Medications: Ambulatory Orders Medication Instructions Recorded Confirmed No Known Home Medications [No 08/07/17 08/07/17 Known Home Medications] - Allergies Allergies/Adverse Reactions: Allergies Allergy/AdvReac Type Severity Reaction Status Date / Time No Known Drug Allergies Allergy Verified 08/06/17 23:34 Review of Systems - Other Findings Other Findings: CONSTITUTIONAL: No weight loss, fever, chills, weakness or fatigue. HEENT: Eyes: No visual loss, blurred vision, double vision or yellow sclerae. Ears, Nose, Throat: No hearing loss, sneezing, congestion, runny nose or sore throat. SKIN: No rash or itching. CARDIOVASCULAR: No chest pain, chest pressure or chest discomfort. No palpitations or edema. RESPIRATORY: No shortness of breath, cough or sputum. GASTROINTESTINAL: See above. GENITOURINARY: No dysuria. No impotence. NEUROLOGICAL: No headache, dizziness, syncope, paralysis, ataxia, numbness or tingling in the extremities. No change in bowel or bladder control. MUSCULOSKELETAL: No muscle, back pain, joint pain or stiffness. HEMATOLOGIC: No anemia, bleeding or bruising. LYMPHATICS: No enlarged nodes. No history of splenectomy. PSYCHIATRIC: No history of depression or anxiety. ENDOCRINOLOGIC: No reports of sweating, cold or heat intolerance. No polyuria or polydipsia. ALLERGIES: No history of asthma, hives, eczema or rhinitis. Exam - Vital Signs Reviewed Vital Signs: Yes - Physical Exam General Appearance: positive: No acute distress Eyes Bilateral: positive: No lid inflammation, Conjunctivae nml, No scleral icterus ENT: positive: Dry mucous membranes Neck: positive: Trachea midline Respiratory: positive: Chest non-tender, No respiratory distress, Breath sounds nml Cardiovascular: positive: Regular rate & rhythm Abdomen: positive: Non-tender, Nml bowel sounds, Other (Well-healed incision.) Skin: positive: Color nml Extremities: positive: Nml appearance Neurologic/Psychiatric: positive: Oriented x3 Conclusion/Plan - Diagnosis Diagnosis: Abdominal pain due to episodic bowel dysfunction - Plan Plan: Obtain a Gastrografin small bowel follow-through to objectively document that his bowels are functioning normally and if this in fact shows that his bowels are not obstructed and his symptoms have resolved I recommend discharge home. Follow-up should be on an as-needed basis only. - Lab Results Fish Bones: 08/07/17 05:15 08/07/17 05:15 - Diagnostic Imaging Results Diagnostic Imaging Results: positive: Final report reviewed, Read independently
== END 2017-08-07 13:34 | disposition home or self-care (01) | DRG 390 ==
LOC: ED 23:28 → MS2 08-07 03:44
PROVIDERS: ADMIT Internal Medicine; ATTEND Nurse Practitioner
DX: K56.609 Unspecified intestinal obstruction, unspecified as to partial versus complete obstruction (principal); K57.90 Diverticulosis of intestine, part unspecified, without perforation or abscess without bleeding; R03.0 Elevated blood-pressure reading, without diagnosis of hypertension; F17.200 Nicotine dependence, unspecified, uncomplicated; Z86.010 Personal history of colon polyps; Z90.49 Acquired absence of other specified parts of digestive tract
CPT/HCPCS: 36415; 71045; 74177; 74250; 80048; 80053; 80076; 81001; 81003; 83605; 83690; 83735; 85025; 87086; 96361; 96374; 96376; 99284

== ENCOUNTER 2018-02-17 18:13 | Observation (INO) | payer OTHER ==
[2018-02-17] MEDS ORDERED: SODIUM CHLORIDE 0.9% 1,000 ML IV ONE ×2 (18:49→19:59)
[2018-02-17] MEDS ORDERED: LORazepam 2 MG/ML VIAL IVP STA (18:49)
[2018-02-17] MEDS ORDERED: HYDROmorphone 1 MG/ML CARPUJECT IVP STA (18:49)
[2018-02-17] MEDS ORDERED: ONDANSETRON 4 MG/2 ML VIAL IVP STA (18:49)
--- NOTE | 2018-02-17 18:51 | ED Physician Documentation ---
PD HPI ABD PAIN - Stated complaint Stated Complaint: AB PX - Chief complaint Chief Complaint: Abd Pain - History obtained from History obtained from: Patient - History of Present Illness Timing - onset: How many hours ago (5), Today Timing - duration: Hours (5) Timing - details: Abrupt onset Quality: Cramping, Aching, Pain Location: All over / everywhere Radiation: Lower back. No: Chest, Left flank, Right flank Improved by: No: Vomiting Worsened by: Moving, Palpation. No: Breathing Associated symptoms: Nausea, Vomiting. No: Fever, Diarrhea, Constipation, Dysuria Similar symptoms before: Diagnosis (SBO few episodes, treated medically and have not needed surgery.) Recently seen: Not recently seen Review of Systems Constitutional: denies: Fever, Chills Nose: denies: Rhinorrhea / runny nose, Congestion Throat: denies: Sore throat Respiratory: denies: Cough GI: reports: Diarrhea (some diarrhea last week, improved and with normal BMs now.) : denies: Dysuria, Frequency PD PAST MEDICAL HISTORY - Past Medical History Cardiovascular: None Respiratory: None Neuro: None GI: Colon polyps, Other (small bowel obstructions) - Past Surgical History Past Surgical History: Yes General: Bowel surgery, Colonoscopy - Present Medications Home Medications: Ambulatory Orders Medication Instructions Recorded Confirmed No Known Home Medications 08/07/17 02/17/18 - Allergies Allergies/Adverse Reactions: Allergies Allergy/AdvReac Type Severity Reaction Status Date / Time No Known Drug Allergies Allergy Verified 02/17/18 18:20 - Social History Does the pt smoke?: No Smoking Status: Current some day smoker Does the pt drink ETOH?: Yes Does the pt have substance abuse?: No - Immunizations Immunizations are current?: Yes - POLST Patient has POLST: No PD ED PE NORMAL - Vitals Vital signs reviewed: Yes - General General: Alert and oriented X 3, Well developed/nourished - HEENT HEENT: PERRL (nonicteric), Pharynx benign - Neck Neck: Supple, no meningeal sign, No adenopathy - Cardiac Cardiac: RRR, No murmur - Respiratory Respiratory: Clear bilaterally - Abdomen Abdomen: No organomegaly, Other (distended, with general tenderness. Bowel sounds hyperactive. ) - Male Male : Deferred - Rectal Rectal: Deferred - Back Back: No CVA TTP - Derm Derm: Normal color, Warm and dry - Extremities Extremities: No deformity, Normal ROM s pain, No edema, No calf tenderness / cord - Neuro Neuro: Alert and oriented X 3, No motor deficit, Normal speech Eye Opening: Spontaneous Motor: Obeys Commands Verbal: Oriented GCS Score: 15 Results - Vitals Vitals: Vital Signs - 24 hr 02/17/18 02/17/18 02/17/18 18:17 19:04 19:52 Temperature 36 C L 36.9 C Heart Rate 83 90 98 Respiratory 22 16 16 Rate Blood Pressure 109/89 H 137/106 H 136/81 H O2 Saturation 100 92 95 02/17/18 20:17 Temperature Heart Rate 97 Respiratory 17 Rate Blood Pressure 131/81 H O2 Saturation 97 Oxygen O2 Source Room air - Labs Labs: Laboratory Tests 02/17/18 02/17/18 02/17/18 18:34 18:34 19:04 WBC 18.4 H RBC 5.38 Hgb 16.4 Hct 46.6 MCV 86.7 MCH 30.5 MCHC 35.2 RDW 12.6 Plt Count 417 MPV 8.5 Neut # (Auto) 11.7 H Lymph # (Auto) 5.0 H [place] # (Auto) 1.5 H Eos # (Auto) 0.1 Baso # (Auto) 0.1 Absolute Nucleated RBC 0.04 Nucleated RBC % 0.2 Sodium 138 Potassium 3.8 Chloride 99 L Carbon Dioxide 26 Anion Gap 13.0 BUN 13 Creatinine 0.9 Estimated GFR (MDRD) 97 Glucose 122 H Lactic Acid 3.4 H* Calcium 9.9 Total Bilirubin 0.9 AST 44 H ALT 79 H Alkaline Phosphatase 44 Total Protein 8.6 H Albumin 5.1 Globulin 3.5 Albumin/Globulin Ratio 1.5 Lipase 25 - Rads (name of study) abd/pelvic CT Radiology: Prelim report reviewed (findings c/w small bowel obstruction), EMP read contemporaneously PD MEDICAL DECISION MAKING - ED course Complexity details: reviewed results, re-evaluated patient, considered differential, d/w patient Departure - Departure Disposition: ED Place in Observation Clinical Impression: Small bowel obstruction Abdominal pain Qualifiers: Abdominal location: generalized Qualified Code(s): R10.84 - Generalized abdominal pain Condition: Stable Record reviewed to determine appropriate education?: Yes
[2018-02-17 19:01] LABS: BASOPHILS # (AUTO) 0.1 10^3/uL (0.0-0.1); BASOPHILS % (AUTO) 0.5 %; EOSINOPHILS # (AUTO) 0.1 10^3/uL (0.0-0.7); EOSINOPHILS % (AUTO) 0.8 %; HGB - HEMOGLOBIN 16.4 g/dL (14.0-18.0); LYMPHOCYTES % (AUTO) 27.3 %; MEAN CORPUSCULAR HEMOGLOBIN 30.5 pg (27.0-31.0); MEAN CORPUSCULAR HGB CONC 35.2 g/dL (32.0-36.0); MEAN CORPUSCULAR VOLUME 86.7 fL (80.0-94.0); MEAN PLATELET VOLUME 8.5 fL (7.4-11.4); MONOCYTES # (AUTO) 1.5 10^3/uL (0.0-1.0); MONOCYTES % (AUTO) 8.1 %; NEUTROPHILS # (AUTO) 11.7 10^3/uL (1.5-6.6); NEUTROPHILS % (AUTO) 63.3 %; PLT - PLATELET COUNT 417 10^3/uL (130-450); RED BLOOD COUNT 5.38 10^6/uL (4.70-6.10); RED CELL DISTRIBUTION WIDTH 12.6 % (12.0-15.0); WHITE BLOOD COUNT 18.4 x10^3/uL (4.8-10.8)
[2018-02-17] MEDS ORDERED: IOVERSOL 320 100 ML VIAL IVP ONE ×2 (19:04→19:43)
[2018-02-17 19:10] LABS: ALBUMIN 5.1 g/dL (3.2-5.5); ALBUMIN/GLOBULIN RATIO 1.5 (1.0-2.2); BILIRUBIN,TOTAL 0.9 mg/dL (0.2-1.0); CALCIUM 9.9 mg/dL (8.5-10.3); CREATININE 0.9 mg/dL (0.6-1.2); TOTAL PROTEIN 8.6 g/dL (6.7-8.2)
--- NOTE | 2018-02-17 20:04 | CT Report ---
Reason: abd pain and distension; h/o SBOs Procedure Date: 02/17/2018 Accession Number: [id number] / [id number] Procedure: CT - Abdomen/Pelvis W/ CPT Code: FULL RESULT: EXAM: CT ABDOMEN AND PELVIS WITH CONTRAST. EXAM DATE: 02/17/2018 07:41 PM. CLINICAL HISTORY: Abdominal pain and distension; history of small bowel obstruction. COMPARISONS: Abdomen and pelvis with 08/07/2017 12:44 AM. TECHNIQUE: Routine helical CT imaging was performed through the abdomen and pelvis. IV contrast: 90 mL OPTIRAY 320. Enteric contrast: No. Reconstructions: Coronal and sagittal. In accordance with CT protocol optimization, one or more of the following dose reduction techniques were utilized for this exam: automated exposure control, adjustment of mA and/or KV based on patient size, or use of iterative reconstructive technique. FINDINGS: Lung Bases: Unremarkable. Liver: Fatty infiltration. Gallbladder/Bile Ducts: Unremarkable. Spleen: Normal. Pancreas: Normal. Adrenal Glands: Normal. Kidneys: Normal. No masses or hydronephrosis. Peritoneal Cavity/Bowel: Moderate dilatation proximal half small bowel, 4 cm diameter, with transition point left lateral lower mid abdomen, approximately image 47. Small amount of adjacent mesenteric edema adjacent to the dilated loops of small bowel, although to a lesser extent than previously. No extraluminal air nor focal fluid collections. Distal half of the small bowel markedly decompressed. Colon is very small in caliber. Diverticula of the colon. No small or large bowel wall thickening. The appendix is well visualized and normal. Pelvic Organs: Normal. The bladder and visualized pelvic organs are within normal limits. Vasculature: No aneurysms or other significant abnormality. Bones: No significant abnormality. Other: None. IMPRESSION: 1. Persistent or recurrent moderate mid small bowel obstruction. Focal transition point left lateral mid abdomen consistent with adhesion. 2. Lesser degree of mild mesenteric edema than previously. 3. Colonic diverticulosis. RADIA
[2018-02-17] MEDS ORDERED: PROCHLORPERAZINE 10 MG/2 ML VIAL IVP PRN (21:20)
[2018-02-17] MEDS ORDERED: HYDROmorphone 0.5 MG/0.5 ML SYRINGE IVP PRN (21:20)
[2018-02-17 22:00] LABS: BILIRUBIN,URINE NEGATIVE (NEGATIVE); CLARITY,URINE CLEAR (CLEAR); GLUCOSE, URINE (UA) NEGATIVE (NEGATIVE); KETONES,URINE (UA) NEGATIVE (NEGATIVE); LEUKOCYTE ESTERASE, URINE NEGATIVE (NEGATIVE); NITRITE,URINE NEGATIVE (NEGATIVE); OCCULT BLOOD,URINE NEGATIVE (NEGATIVE); PH,URINE 7.5 PH (5.0-7.5); PROTEIN,URINE NEGATIVE (NEGATIVE); UROBILINOGEN,URINE 0.2 (NORMAL) E.U./dL (NORMAL)
[2018-02-17] MEDS: D5NS W/20 MEQ KCL 1,000 ML IV SCH (22:22)
[2018-02-17] MEDS: SODIUM CHLORIDE FLUSH 0.9% 10 ML SYRINGE IVP PRN (22:22)
[2018-02-17] MEDS ORDERED: METOCLOPRAMIDE 10 MG/2 ML VIAL IVP PRN (22:30)
--- NOTE | 2018-02-17 23:07 | HISTORY & PHYSICAL EXAMINATION ---
DATE OF SERVICE: 02/17/2018 Physician: Moni Bahena MD HISTORY OF PRESENT ILLNESS: This is a 32-year-old white male with a history of bowel surgery 10 years ago, and since then he has had several bowel obstructions, presumably from adhesions. He was admitted here 6 months ago with his typical rapid presentation of distention of the abdomen with pain and nausea/vomiting, required an NG tube for decompression, bowel rest, IV fluids, and imaging found a small-bowel obstruction. The patient presents now with similar presentation of rapidly progressive abdominal distention over 5 hours, abdominal pain, nausea and vomiting and presents to the emergency room, where he received IV pain medications, antiemetics and IV hydration. The CT of the abdomen again shows mid bowel obstruction. PAST MEDICAL HISTORY: Bowel surgery 10 years ago, small-bowel obstruction several times. MEDICATIONS: None. ALLERGIES: NONE. SOCIAL HISTORY: Patient drinks rare alcohol, is not a chronic cigarette smoker, uses no illicit drugs. FAMILY HISTORY: No inherited diseases. REVIEW OF SYSTEMS: A comprehensive review of systems was performed and the pertinent positives are in the HPI; the rest are negative. PHYSICAL EXAMINATION VITAL SIGNS: Blood pressure 130/100, heart rate 80, temperature 36. HEENT: Unremarkable. NECK: No JVD or carotid bruits. CHEST: Clear. HEART: Sounds are normal. ABDOMEN: Soft, non-distended. No guarding or rebound. Absent bowel sounds. No CVA tenderness. EXTREMITIES: Legs without edema. NEUROLOGIC: Grossly intact. LABORATORY/DATA: Sodium 138, potassium 3.8, BUN 13, creatinine 0.9. Lactic acid level 3.4. AST 44, ALT 79; six months ago, these were 30 and 41. Lipase level normal. White blood count 18.4 with a left shift, hemoglobin 16.4, platelet count 417. Urinalysis not available. CT of the abdomen and pelvis showed: a fatty liver and moderate dilatation of the proximal small bowel, which is 4 cm in diameter, with a transition point at the left lateral lower mid abdomen and some adjacent mesenteric edema near the dilated loops of small bowel, but less so than in August 2017. He also has colonic diverticulosis. IMPRESSION/DIAGNOSES 1. Systemic inflammatory response syndrome (SIRS) with elevated lactic acid level and an abnormally low temperature; this has potential for a sepsis picture. 2. Small bowel obstruction, recurrent. 3. Elevated liver function tests with findings of fatty liver on imaging. PLAN 1. Place the patient in Observation status. 2. Continue hydration with IV fluids aggressively due to the elevated lactic acid level. Watch for shock. 3. Continue with bowel rest, p.r.n. antiemetics, and p.r.n. IV narcotics for pain control. 4. Since he currently is with minimal symptoms and comfortable, if this reverses and he again has symptoms, then an NG tube will be placed, and surgical consult and oral contrast CT abdomen obtained. 5. Follow his lactic acid level every 3 hour. If there are other signs of infection, then begin empiric antibiotics to cover an abdominal source. 6. Monitor CBC and BMP daily. DVT Prophylaxis: SCDs. CODE STATUS: FULL CODE. ATTESTATION: The patient is expected to be discharged or transferred to another facility within 96 hours: Yes. CC: [employer] in [place] TD: 02/17/2018 21:54 MTDD
[2018-02-18 05:47] LABS: BASOPHILS # (AUTO) 0.1 10^3/uL (0.0-0.1); BASOPHILS % (AUTO) 0.6 %; EOSINOPHILS # (AUTO) 0.3 10^3/uL (0.0-0.7); EOSINOPHILS % (AUTO) 2.9 %; HGB - HEMOGLOBIN 15.2 g/dL (14.0-18.0); LYMPHOCYTES # (AUTO) 2.7 10^3/uL (1.5-3.5); LYMPHOCYTES % (AUTO) 29.5 %; MEAN CORPUSCULAR HEMOGLOBIN 30.7 pg (27.0-31.0); MEAN CORPUSCULAR HGB CONC 35.2 g/dL (32.0-36.0); MEAN CORPUSCULAR VOLUME 87.2 fL (80.0-94.0); MEAN PLATELET VOLUME 8.2 fL (7.4-11.4); MONOCYTES % (AUTO) 11.4 %; NEUTROPHILS # (AUTO) 5.1 10^3/uL (1.5-6.6); NEUTROPHILS % (AUTO) 55.6 %; PLT - PLATELET COUNT 301 10^3/uL (130-450); RED BLOOD COUNT 4.96 10^6/uL (4.70-6.10); RED CELL DISTRIBUTION WIDTH 12.5 % (12.0-15.0); WHITE BLOOD COUNT 9.1 x10^3/uL (4.8-10.8)
[2018-02-18 05:58] LABS: CALCIUM 8.8 mg/dL (8.5-10.3); CREATININE 0.8 mg/dL (0.6-1.2)
[2018-02-18] MEDS: SODIUM CHLORIDE FLUSH 0.9% 10 ML SYRINGE IVP SCH ×3 (06:21→16:40)
[2018-02-18] MEDS: SODIUM CHLORIDE FLUSH 0.9% 10 ML SYRINGE IVP PRN ×2 (06:21→18:55)
[2018-02-18] MEDS: PANTOPRAZOLE 40 MG VIAL IVP SCH (06:21)
[2018-02-18] MEDS: D5NS W/20 MEQ KCL 1,000 ML IV SCH (07:59)
[2018-02-18] MEDS: POLYETHYLENE GLYCOL 3350 17 GM PACKET PO SCH (08:02)
--- NOTE | 2018-02-18 15:05 | XRAY Report ---
Reason: sbo Procedure Date: 02/18/2018 Accession Number: [id number] / [id number] Procedure: XR - Abdomen 1 View X-Ray CPT Code: 51234 FULL RESULT: EXAM: ABDOMEN RADIOGRAPHY EXAM DATE: 02/18/2018 10:39 AM. CLINICAL HISTORY: Small bowel obstruction. COMPARISON: CT abdomen/pelvis with contrast 02/17/2018 7:16 PM. TECHNIQUE: 1 view. FINDINGS: Bowel Gas Pattern: Within normal limits. No dilated loops. Normal appearance of positive contrast within the stomach, duodenum and proximal jejunum. Other: None. IMPRESSION: Normal 1-view abdomen x-ray, with early phase contrast in the stomach and proximal small bowel. RADIA
--- NOTE | 2018-02-18 16:02 | PROVIDER PROGRESS NOTE ---
Subjective - Prog Note Date Prog Note Date: 02/18/18 Prog Note Time: 10:00 - Subjective Pt reports feeling: Improved Subjective: Zac is tolerating clear liquids and has very mild tenderness that comes and goes in his bilateral lower quadrants. He denies chest pain, shortness of breath, nausea, vomiting, bleeding, diarrhea or a new cough. He states that his condition has improved since admission and is agreeable to one more night of stay to ensure that the SBO is resolved. Current Medications - Current Medications Current Medications: Active Medications Hydromorphone HCl (Dilaudid Inj Syringe) 0.5 mg IVP Q2H PRN PRN Reason: Pain 8 to 10 Potassium Chloride/Dextrose/Sod Cl () 1,000 mls @ 100 mls/hr IV .Q10H [facility] Last Infusion: 02/18/18 14:25 Dose: 100 mls/hr Metoclopramide HCl (Reglan Inj) 5 mg IVP Q6HR PRN PRN Reason: Nausea / Vomiting Pantoprazole Sodium (Protonix) 40 mg IVP QDAC [facility] Last Admin: 02/18/18 06:21 Dose: 40 mg Polyethylene Glycol (Miralax) 17 gm PO DAILY [facility] Last Admin: 02/18/18 08:02 Dose: Not Given Prochlorperazine Edisylate (Compazine Inj) 10 mg IVP Q6HR PRN PRN Reason: Nausea / Vomiting Sodium Chloride (Normal Saline Flush 0.9%) 10 ml IVP PRN PRN PRN Reason: NEEDED PER PROVIDER ORDERS Last Admin: 02/18/18 06:21 Dose: 10 ml Sodium Chloride (Normal Saline Flush 0.9%) 10 ml IVP 0100,0900,1700 [facility] Last Admin: 02/18/18 16:40 Dose: Not Given No Known Home Medications 08/07/17 Objective - Vital Signs/Intake & Output Reviewed Vital Signs: Yes Vital Signs: Vital Signs x48h Temp Pulse Resp BP Pulse Ox 02/18/18 15:22 36.6 C 62 16 123/79 97 Intake & Output: Intake & Output 02/15/18 02/16/18 02/17/18 02/18/18 23:59 23:59 23:59 23:59 Intake Total 1999 1490.000 Output Total 1000 Balance 1000 1490.000 - Objective General Appearance: positive: No acute distress, Alert Eyes Bilateral: positive: PERRL ENT: positive: Pharynx nml, No signs of dehydration Neck: positive: Thyroid nml, No JVD, Trachea midline Respiratory: positive: Chest non-tender, No respiratory distress, Breath sounds nml Cardiovascular: positive: Regular rate & rhythm, No murmur, No gallop Peripheral Pulses: 1+ Radial (R), 1+ Radial (L) Abdomen: positive: Nml bowel sounds, Tenderness, Guarding, Other. negative: Mass Back: positive: Nml inspection Skin: positive: Color nml, No rash, Warm, Dry Extremities: positive: Non-tender, Full ROM, Nml appearance, No pedal edema Neurologic/Psychiatric: positive: Oriented x3, CN's nml (2-12), Motor nml, Sensation nml Reflexes: Bicep (R): 4+, Bicep (L): 4+ - Lab Results Fish Bones: 02/19/18 05:30 02/19/18 05:30 Other Labs: Lab Results x24hrs 02/18/18 02/18/18 02/17/18 Range/Units 05:30 05:30 21:37 WBC 9.1 (4.8-10.8) x10^3/uL RBC 4.96 (4.70-6.10) 10^6/uL Hgb 15.2 (14.0-18.0) g/dL Hct 43.3 (42.0-52.0) % MCV 87.2 (80.0-94.0) fL MCH 30.7 (27.0-31.0) pg MCHC 35.2 (32.0-36.0) g/dL RDW 12.5 (12.0-15.0) % Plt Count 301 (130-450) 10^3/uL MPV 8.2 (7.4-11.4) fL Neut # (Auto) 5.1 (1.5-6.6) 10^3/uL Lymph # (Auto) 2.7 (1.5-3.5) 10^3/uL Eddy # (Auto) 1.0 (0.0-1.0) 10^3/uL Eos # (Auto) 0.3 (0.0-0.7) 10^3/uL Baso # (Auto) 0.1 (0.0-0.1) 10^3/uL Absolute Nucleated RBC 0.00 x10^3/uL Nucleated RBC % 0.0 /100WBC Sodium 139 (135-145) mmol/L Potassium 4.2 (3.5-5.0) mmol/L Chloride 106 (101-111) mmol/L Carbon Dioxide 24 (21-32) mmol/L Anion Gap 9.0 (6-13) BUN 12 (6-20) mg/dL Creatinine 0.8 (0.6-1.2) mg/dL Estimated GFR (MDRD) 111 (>89) Glucose 124 H (70-100) mg/dL Lactic Acid 2.2 (0.5-2.2) mmol/L Calcium 8.8 (8.5-10.3) mg/dL Total Bilirubin (0.2-1.0) mg/dL AST (10-42) IU/L ALT (10-60) IU/L Alkaline Phosphatase (42-121) IU/L Total Protein (6.7-8.2) g/dL Albumin (3.2-5.5) g/dL Globulin (2.1-4.2) g/dL Albumin/Globulin Ratio (1.0-2.2) Lipase (22-51) U/L Urine Color Urine Clarity (CLEAR) Urine pH (5.0-7.5) PH Ur Specific [place] (1.002-1.030) Urine Protein (NEGATIVE) mg/dL Urine Glucose (UA) (NEGATIVE) mg/dL Urine Ketones (NEGATIVE) mg/dL Urine Occult Blood (NEGATIVE) Urine Nitrite (NEGATIVE) Urine Bilirubin (NEGATIVE) Urine Urobilinogen (NORMAL) E.U./dL Ur Leukocyte Esterase (NEGATIVE) Ur Microscopic Review Urine Culture Comments 02/17/18 02/17/18 02/17/18 Range/Units 21:25 19:04 18:34 WBC (4.8-10.8) x10^3/uL RBC (4.70-6.10) 10^6/uL Hgb (14.0-18.0) g/dL Hct (42.0-52.0) % MCV (80.0-94.0) fL MCH (27.0-31.0) pg MCHC (32.0-36.0) g/dL RDW (12.0-15.0) % Plt Count (130-450) 10^3/uL MPV (7.4-11.4) fL Neut # (Auto) (1.5-6.6) 10^3/uL Lymph # (Auto) (1.5-3.5) 10^3/uL Eddy # (Auto) (0.0-1.0) 10^3/uL Eos # (Auto) (0.0-0.7) 10^3/uL Baso # (Auto) (0.0-0.1) 10^3/uL Absolute Nucleated RBC x10^3/uL Nucleated RBC % /100WBC Sodium 138 (135-145) mmol/L Potassium 3.8 (3.5-5.0) mmol/L Chloride 99 L (101-111) mmol/L Carbon Dioxide 26 (21-32) mmol/L Anion Gap 13.0 (6-13) BUN 13 (6-20) mg/dL Creatinine 0.9 (0.6-1.2) mg/dL Estimated GFR (MDRD) 97 (>89) Glucose 122 H (70-100) mg/dL Lactic Acid 3.4 H* (0.5-2.2) mmol/L Calcium 9.9 (8.5-10.3) mg/dL Total Bilirubin 0.9 (0.2-1.0) mg/dL AST 44 H (10-42) IU/L ALT 79 H (10-60) IU/L Alkaline Phosphatase 44 (42-121) IU/L Total Protein 8.6 H (6.7-8.2) g/dL Albumin 5.1 (3.2-5.5) g/dL Globulin 3.5 (2.1-4.2) g/dL Albumin/Globulin Ratio 1.5 (1.0-2.2) Lipase 25 (22-51) U/L Urine Color YELLOW Urine Clarity CLEAR (CLEAR) Urine pH 7.5 (5.0-7.5) PH Ur Specific [place] 1.010 (1.002-1.030) Urine Protein NEGATIVE (NEGATIVE) mg/dL Urine Glucose (UA) NEGATIVE (NEGATIVE) mg/dL Urine Ketones NEGATIVE (NEGATIVE) mg/dL Urine Occult Blood NEGATIVE (NEGATIVE) Urine Nitrite NEGATIVE (NEGATIVE) Urine Bilirubin NEGATIVE (NEGATIVE) Urine Urobilinogen 0.2 (NORMAL) (NORMAL) E.U./dL Ur Leukocyte Esterase NEGATIVE (NEGATIVE) Ur Microscopic Review NOT INDICATED Urine Culture Comments NOT INDICATED 02/17/18 Range/Units 18:34 WBC 18.4 H (4.8-10.8) x10^3/uL RBC 5.38 (4.70-6.10) 10^6/uL Hgb 16.4 (14.0-18.0) g/dL Hct 46.6 (42.0-52.0) % MCV 86.7 (80.0-94.0) fL MCH 30.5 (27.0-31.0) pg MCHC 35.2 (32.0-36.0) g/dL RDW 12.6 (12.0-15.0) % Plt Count 417 (130-450) 10^3/uL MPV 8.5 (7.4-11.4) fL Neut # (Auto) 11.7 H (1.5-6.6) 10^3/uL Lymph # (Auto) 5.0 H (1.5-3.5) 10^3/uL Eddy # (Auto) 1.5 H (0.0-1.0) 10^3/uL Eos # (Auto) 0.1 (0.0-0.7) 10^3/uL Baso # (Auto) 0.1 (0.0-0.1) 10^3/uL Absolute Nucleated RBC 0.04 x10^3/uL Nucleated RBC % 0.2 /100WBC Sodium (135-145) mmol/L Potassium (3.5-5.0) mmol/L Chloride (101-111) mmol/L Carbon Dioxide (21-32) mmol/L Anion Gap (6-13) BUN (6-20) mg/dL Creatinine (0.6-1.2) mg/dL Estimated GFR (MDRD) (>89) Glucose (70-100) mg/dL Lactic Acid (0.5-2.2) mmol/L Calcium (8.5-10.3) mg/dL Total Bilirubin (0.2-1.0) mg/dL AST (10-42) IU/L ALT (10-60) IU/L Alkaline Phosphatase (42-121) IU/L Total Protein (6.7-8.2) g/dL Albumin (3.2-5.5) g/dL Globulin (2.1-4.2) g/dL Albumin/Globulin Ratio (1.0-2.2) Lipase (22-51) U/L Urine Color Urine Clarity (CLEAR) Urine pH (5.0-7.5) PH Ur Specific [place] (1.002-1.030) Urine Protein (NEGATIVE) mg/dL Urine Glucose (UA) (NEGATIVE) mg/dL Urine Ketones (NEGATIVE) mg/dL Urine Occult Blood (NEGATIVE) Urine Nitrite (NEGATIVE) Urine Bilirubin (NEGATIVE) Urine Urobilinogen (NORMAL) E.U./dL Ur Leukocyte Esterase (NEGATIVE) Ur Microscopic Review Urine Culture Comments - Diagnostic Imaging Diagnostic Imaging Results: positive: Final report reviewed Diagnostic Imaging Comments: EXAM: ABDOMEN RADIOGRAPHY EXAM DATE: 02/18/2018 04:00 PM. IMPRESSION: Normal 1-view abdomen x-ray. No evidence of obstruction or delayed transit. Positive contrast is now within the colon. ABX Reporting Has patient been on IV antibiotics over the past 48 hours?: No Sepsis Event Note (H) - Evaluation Current Stage of Sepsis: Ruled out Assessment/Plan - Problem List (1) Small bowel obstruction Impression: A general surgery consult was made for Dr. Feliberto Rice. He suggested Gastro- graffin challenge with serial imaging to ensure complete passage. Since consuming the contrast, the patient notes nearly a complete resolution of his pain and is tolerating CL diet. Each image (abdominal x-ray 1 view) has shown improvement. Plan: Continue imaging, update Dr. Rice as needed. (2) Intestinal adhesions Impression: The patient admits to bowel surgery at least 10 years ago and this seems to be the area of interest regarding his SBO both in August and for this admission. Plan: Continue to treat SBO. Encouraged daily Benefiber, soft foods for easy passage through this bowel narrowing. (3) Abdominal pain Impression: The patient presented with abdominal pain as being the #1 complaint on admission, and today this has nearly subsided as his pain comes and goes. Plan: Advance diet to CL and soft for the AM. Qualifiers: Abdominal location: generalized Qualified Code(s): R10.84 - Generalized abdominal pain (4) PTSD (post-traumatic stress disorder) Impression: The patient admits to a history of this and notes that when he is feeling anxious, his bowels tend to become more active. He states [facility], but the colonoscopy bx did not prove this diagnosis, and he would not agree to any further testing including an EGD at the time. He is not prescribed any home medications for this DX. He denies suicidal ideation on exam. Plan: Continue to support mental status. (5) Fatty infiltration of liver Impression: A CT of the abdomen and pelvis shows fatty infiltration of liver, and on his last imaging in August of 2017 the same finding was present. Plan: Encourage a weight loss plan upon discharge.
--- NOTE | 2018-02-18 16:31 | XRAY Report ---
Reason: SBO-imaging series Procedure Date: 02/18/2018 Accession Number: [id number] / [id number] Procedure: XR - Abdomen 1 View X-Ray CPT Code: 93331 FULL RESULT: EXAM: ABDOMEN RADIOGRAPHY EXAM DATE: 02/18/2018 04:00 PM. CLINICAL HISTORY: SBO-imaging series. COMPARISON: ABDOMEN 1 VIEW 02/18/2018 10:39 AM. TECHNIQUE: 1 view. FINDINGS: Bowel Gas Pattern: Within normal limits. No dilated loops. Positive contrast has traversed the small bowel and is now opacifying normal-appearing large bowel to the level of the rectum. Other: None. IMPRESSION: Normal 1-view abdomen x-ray. No evidence of obstruction or delayed transit. Positive contrast is now within the colon. RADIA
[2018-02-18] MEDS ORDERED: ACETAMINOPHEN 325 MG TABLET PO PRN (23:52)
--- NOTE | 2018-02-19 01:17 | XRAY Report ---
Reason: SBO-imaging series Procedure Date: 02/18/2018 Accession Number: [id number] / [id number] Procedure: XR - Abdomen 1 View X-Ray CPT Code: 51192 FULL RESULT: EXAM: ABDOMEN RADIOGRAPHY EXAM DATE: 02/18/2018 11:11 PM. CLINICAL HISTORY: SBO-imaging series. COMPARISON: ABDOMEN 1 VIEW 02/18/2018 3:29 PM ABDOMEN 1 VIEW 02/18/2018 10:39 AM. TECHNIQUE: 1 view. A total of 2 exposures are provided for review. FINDINGS: Bowel Gas Pattern: There is a relative paucity of small bowel gas, which is nonspecific. No definite abnormally dilated bowel loops visualized. Other: Central intermediate density within the abdomen may be due to underlying ascites. This is difficult to ascertain on the radiographs. IMPRESSION: Nonspecific bowel gas pattern without definite abnormally dilated bowel loops demonstrated. RADIA
[2018-02-19] MEDS: SODIUM CHLORIDE FLUSH 0.9% 10 ML SYRINGE IVP SCH ×2 (04:37→11:44)
[2018-02-19] MEDS: D5NS W/20 MEQ KCL 1,000 ML IV SCH (04:37)
[2018-02-19 05:46] LABS: BASOPHILS # (AUTO) 0.1 10^3/uL (0.0-0.1); BASOPHILS % (AUTO) 0.8 %; EOSINOPHILS # (AUTO) 0.2 10^3/uL (0.0-0.7); EOSINOPHILS % (AUTO) 3.5 %; HGB - HEMOGLOBIN 14.6 g/dL (14.0-18.0); LYMPHOCYTES # (AUTO) 2.4 10^3/uL (1.5-3.5); LYMPHOCYTES % (AUTO) 34.9 %; MEAN CORPUSCULAR HEMOGLOBIN 30.7 pg (27.0-31.0); MEAN CORPUSCULAR HGB CONC 34.8 g/dL (32.0-36.0); MEAN CORPUSCULAR VOLUME 88.4 fL (80.0-94.0); MEAN PLATELET VOLUME 7.9 fL (7.4-11.4); MONOCYTES # (AUTO) 0.6 10^3/uL (0.0-1.0); MONOCYTES % (AUTO) 9.1 %; NEUTROPHILS # (AUTO) 3.6 10^3/uL (1.5-6.6); NEUTROPHILS % (AUTO) 51.7 %; PLT - PLATELET COUNT 260 10^3/uL (130-450); RED BLOOD COUNT 4.76 10^6/uL (4.70-6.10); RED CELL DISTRIBUTION WIDTH 12.4 % (12.0-15.0); WHITE BLOOD COUNT 6.9 x10^3/uL (4.8-10.8)
[2018-02-19 05:53] LABS: ALBUMIN 3.7 g/dL (3.2-5.5); ALBUMIN/GLOBULIN RATIO 1.2 (1.0-2.2); BILIRUBIN,TOTAL 0.9 mg/dL (0.2-1.0); CALCIUM 8.7 mg/dL (8.5-10.3); CREATININE 0.8 mg/dL (0.6-1.2); MAGNESIUM 1.8 mg/dL (1.7-2.8); PHOSPHORUS 3.8 mg/dL (2.5-4.6); TOTAL PROTEIN 6.7 g/dL (6.7-8.2)
[2018-02-19 06:08] LABS: HB2 TOTAL 15.3 g/dL; HEMOGLOBIN A1C 0.55 g/dL; HEMOGLOBIN A1C % 5.4 % (4.6-6.2)
[2018-02-19] MEDS: SODIUM CHLORIDE FLUSH 0.9% 10 ML SYRINGE IVP PRN (07:26)
[2018-02-19] MEDS: PANTOPRAZOLE 40 MG VIAL IVP SCH (07:26)
[2018-02-19 07:27] VITALS: BP 119/82
[2018-02-19] MEDS ORDERED: WHEAT DEXTRIN POWDER PACKET PO SCH (09:00)
[2018-02-19] MEDS: POLYETHYLENE GLYCOL 3350 17 GM PACKET PO SCH (11:43)
--- NOTE | 2018-02-19 13:02 | Discharge Plan ---
Discharge Plan Disposition: 01 Home, Self Care Condition: Good Prescriptions: Wheat Dextrin [Benefiber] 1 packet PO DAILY #30 packet Diet: Soft Activity Restrictions: Activity as Tolerated Shower Restrictions: No Driving Restrictions: No Additional Instructions or Follow Up instructions: You were admitted for a small bowel obstruction, similar to your last admission in which there is an adhesion (intestinal narrowing) as the most likely cause. Your case was reviewed with our general surgery team who did not recommend any surgical interventions, rather a gastro-graffin challenge including serial x- rays. All imaging showed gradual improvement and you were tolerating food and moving your bowels today. I have given you a diverticulitis/diverticulosis hand out which helps with giving you good recommendations to prevent future problems, including food choices. Please drink a daily bene-fiber with a goal of pudding consistency stool. You did not have any evidence of high or uncontrolled blood pressure while in the hospital. You were found to have a fatty liver on imaging, that is stable from your last admission. You should follow up with your primary care provider for proper monitoring or further work up. Please see your primary care provider within one week. Follow-Up Care: Dietitian No Smoking: If you smoke, Please STOP! Call for help.
--- NOTE | 2018-02-19 13:05 | DISCHARGE SUMMARY ---
"Discharge Summary Admit Date: 02/17/18 Discharge Date: 02/19/18 Discharging Provider: SUNSHINE Masterson Primary Care Provider: Yaniv VERONICA Code Status: Attempt Resuscitation Condition at Discharge: Good Discharge Disposition: 01 Home, Self Care - DIAGNOSES Admission Diagnoses: SIRS (systemic inflammatory response syndrome) (R65.10) Small bowel obstruction (K56.609) Elevated LFTs (R94.5) Discharge Diagnoses with Status of Each Condition: Small bowel obstruction (K56.609) resolved. Abdominal pain (R10.9) resolved. Intestinal adhesions (K66.0) chronic, stable. Elevated LFTs (R94.5) improved, stable. Fatty infiltration of liver (K76.0) chronic, stable. PTSD (post-traumatic stress disorder) (F43.10) chronic, stable. - HPI History of Present Illness: Koko Gloria is a 32 year old male with a past medical history of bowel surgery 10 years ago, and since then he has had several bowel obstructions, presumably from adhesions. He was admitted here about 6 months ago with his typical rapid presentation of distention of the abdomen with pain and nausea, vomiting req uiring an NG tube for decompression, bowel rest, IV fluids, and imaging found a small bowel obstruction. The patient presents with no similar presentation of rapidly progressive abdominal distention for over 5 hours, abdominal pain in both lower quadrants, nausea, vomiting. He has received IV pain meds, IV antiemetics, and IV fluids. An abdominal CT showed a mid bowel obstruction. He will be admitted to our observation unit. - CONSULTS | PROCEDURES Consultations: A phone consult with General surgery-Dr. Feliberto Rice. - HOSPITAL COURSE Hospital Course: The patient did not require an NG tube for decompression and improved with a Gastro-graffin challenge as per our GI team recommendation with serial abdominal imaging. By the next AM the patient was tolerating a diet, and this SBO had resolved. He required no surgery and no longer had pain. He was moving his bowels upon discharge. He was told of his fatty liver that was unchanged from his previous admission. Hand outs were given. The patient was medically stable at the time of discharge and sent home with his . - ALLERGIES Allergies/Adverse Reactions: Allergies Allergy/AdvReac Type Severity Reaction Status Date / Time No Known Drug Allergies Allergy Verified 02/17/18 18:20 - MEDICATIONS Home Medications: Ambulatory Orders Medication Instructions Recorded Confirmed RX: Wheat Dextrin [Benefiber] 1 packet PO DAILY #30 packet 02/19/18 - PHYSICAL EXAM AT DISCHARGE General Appearance: positive: No acute distress, Alert Eyes Bilateral: positive: Normal inspection, PERRL ENT: positive: ENT inspection nml, Pharynx nml, No signs of dehydration Neck: positive: Nml inspection, Thyroid nml, No JVD, Trachea midline Respiratory: positive: Chest non-tender, No respiratory distress, Breath sounds nml Cardiovascular: positive: Regular rate & rhythm, No murmur, No gallop Peripheral Pulses: positive: 2+ Abdomen: positive: Non-tender, Nml bowel sounds, Other (obese, soft) Back: positive: Nml inspection Skin: positive: Color nml, No rash, Warm, Dry Extremities: positive: Non-tender, Full ROM, Nml appearance, No pedal edema Neurologic/Psychiatric: positive: Oriented x3, CN's nml (2-12), Motor nml, Sensation nml, Mood/affect nml Reflexes: Bicep (R): 4+, Bicep (L): 4+ - LABS Result Diagrams: 02/19/18 05:30 02/19/18 05:30 - DIAGNOSTIC IMAGING Diagnostic Imaging Results: Final report reviewed - SEPSIS Current Stage of Sepsis: Ruled out - FOLLOW UP Follow Up: Disposition: Home Prescriptions: Wheat Dextrin [Benefiber] 1 packet PO DAILY #30 packet Diet: Soft Additional Instructions or Follow Up instructions: You were admitted for a small bowel obstruction, similar to your last admission in which there is an adhesion (intestinal narrowing) as the most likely cause. Your case was reviewed with our general surgery team who did not recommend any surgical interventions, rather a gastro-graffin challenge including serial x-rays. All imaging showed gradual improvement and you were tolerating food and moving your bowels today. I have given you a diverticulitis/diverticulosis hand out which helps with giving you good recommendations to prevent future problems, including food choices. Please drink a daily bene-fiber with a goal of pudding consistency stool. You did not have any evidence of high or uncontrolled blood pressure while in the hospital. You were found to have a fatty liver on imaging, that is stable from your last admission. You should follow up with your primary care provider for proper monitoring or further work up. Please see your primary care provider within one week. - TIME SPENT Time Spent in Discharge (Minutes): 45"
--- NOTE | 2018-02-19 13:14 | XRAY Report ---
Reason: SBO-imaging series Procedure Date: 02/19/2018 Accession Number: [id number] / [id number] Procedure: XR - Abdomen 1 View X-Ray CPT Code: 59642 FULL RESULT: EXAM: ABDOMEN RADIOGRAPHY EXAM DATE: 02/19/2018 11:54 AM. CLINICAL HISTORY: SBO-imaging series. COMPARISON: ABDOMEN 1 VIEW 02/18/2018 11:11 PM ABDOMEN 1 VIEW 02/18/2018 3:29 PM ABDOMEN 1 VIEW 02/18/2018 10:39 AM. TECHNIQUE: 1 view. FINDINGS: Bowel Gas Pattern: Within normal limits. No dilated loops. Clearance of positive contrast from the bowel. Other: None. IMPRESSION: Interval clearance of positive contrast from the bowel. Normal 1-view abdomen x-ray. RADIA
== END 2018-02-19 13:36 | disposition home or self-care (01) ==
LOC: ED 18:13 → OBS 21:20
PROVIDERS: ADMIT Internal Medicine; ATTEND Nurse Practitioner
DX: K56.50 Intestinal adhesions [bands], unspecified as to partial versus complete obstruction (principal); K76.0 Fatty (change of) liver, not elsewhere classified; F43.12 Post-traumatic stress disorder, chronic; K57.30 Diverticulosis of large intestine without perforation or abscess without bleeding; F17.210 Nicotine dependence, cigarettes, uncomplicated
CPT/HCPCS: 36415; 74018; 74177; 80048; 80053; 81003; 82977; 83036; 83605; 83690; 83735; 84100; 84443; 85025; 96361; 96365; 96366; 96375; 96376; 99283; 99284; A9270; G0378; J1170; J2060; Q9967; 81001; 87086; 96374

== ENCOUNTER 2018-04-17 07:21 | Day surgery (SDC) | payer OTHER ==
[2018-04-17] MEDS ORDERED: cefTRIAXone 2 GM VIAL ONE (07:35)
[2018-04-17] MEDS ORDERED: LACTATED RINGERS 1,000 ML IV ONE ×2 (07:59→13:21)
--- NOTE | 2018-04-17 08:31 | ANESTHESIA ---
Pre-Anesthesia VS, & Labs - Diagnosis right biceps tendinitis, subacromial impingement, rotator cuff tear - Procedure right shoulder arthroscopy Vital Signs: Temp Pulse Resp BP Pulse Ox 36.1 C L 74 18 138/83 H 95 04/17/18 07:35 04/17/18 07:35 04/17/18 07:35 04/17/18 07:35 04/17/18 07:35 Height 6 ft Weight (kg) 99.79 kg Body Mass Index 29.8 - NPO >8 hours Home Medications and Allergies Home Medications: Ambulatory Orders buPROPion [Wellbutrin Xl] 1 tab PO DAILY 04/16/18 buPROPion [Wellbutrin Xl] 1 tab PO DAILY 04/16/18 Allergies/Adverse Reactions: Allergies Allergy/AdvReac Type Severity Reaction Status Date / Time No Known Drug Allergies Allergy Verified 03/05/18 11:28 Anes History & Medical History - Anesthetic History Anesthesia Complications: reports: No previous complications - Medical History Cardiovascular: reports: None Pulmonary: reports: None Gastrointestinal: reports: Colon polyps, Other Urinary: reports: None Neuro: reports: None Musculoskeletal: reports: Other Endocrine/Autoimmune: reports: None Skin: reports: None Smoking Status: Current some day smoker - Surgical History General: Bowel surgery, Colonoscopy Orthopedic: ACL reconstruction Exam General: Alert Mouth Opening: Greater than 4 Fingerbreadths Mallampati classification: II Thyromental Distance: greater than 6 cm Plan Anesthesia Type: General, Interscalene Block Consent for Procedure(s) Verified and Reviewed: Yes Code Status: Attempt Resuscitation ASA classification: 1-Healthy patient Is this case an emergency?: No
[2018-04-17] MEDS ORDERED: BUPIVACAINE 0.25% PF 10 ML VIAL ONE (08:52)
[2018-04-17] MEDS ORDERED: EPINEPHrine 1 MG/ML AMP ONE (08:52)
[2018-04-17] MEDS ORDERED: MIDAZOLAM 2 MG/2 ML VIAL ONE (08:58)
[2018-04-17] MEDS ORDERED: fentaNYL 100 MCG/2 ML VIAL ONE (08:58)
[2018-04-17] MEDS ORDERED: DEXAMETHASONE 4 MG/ML VIAL ONE (08:59)
--- NOTE | 2018-04-17 09:43 | ANESTHESIA PROCEDURE NOTE ---
Diagnosis: post op pain management for shoulder arthroscopy Procedure: interscalene block Consent for Procedure(s) Verified and Reviewed: Yes Height and Weight: Height 6 ft Weight (kg) 99.79 kg Body Mass Index 29.8 Vital Signs: Temp Pulse Resp BP Pulse Ox 36.1 C L 74 18 138/83 H 95 04/17/18 07:35 04/17/18 07:35 04/17/18 07:35 04/17/18 07:35 04/17/18 07:35 Allergies No Known Drug Allergies Allergy (Verified 03/05/18 11:28) ASA classification: 1-Healthy patient Is this case an emergency?: No Anes. Monitoring and Equipment: Non-invasive BP, Pulse oximetery Procedure Notes: patient in supine position with HOB up 30 degrees, cloraprep to left neck, TO done with RN. Versed 2mg and Fentanyl 100 mcg given by me. Ultrasound view of plexus good , 20g stimuplex needle under U/S guidance. 35cc Ropivicaine 0.5% and Decadron 4mg given in 5cc increments, negative aspiration and no parathesia. Patient tolerated well, loss of motor to upper arm in 5min.
[2018-04-17] MEDS ORDERED: ONDANSETRON 4 MG/2 ML VIAL IVP PRN ×2 (12:15→14:44)
[2018-04-17] MEDS ORDERED: oxyCODONE 5 MG TABLET PO PRN (12:15)
[2018-04-17] MEDS ORDERED: PROPOFOL 200 MG/20 ML VIAL IVP ONE (12:20)
[2018-04-17] MEDS ORDERED: cefTRIAXone 250 MG VIAL IM ONE (12:20)
[2018-04-17] MEDS ORDERED: ROCURONIUM 50 MG/5 ML VIAL IVP ONE (12:20)
[2018-04-17] MEDS ORDERED: LIDOCAINE-MPF 2% 5 ML VIAL IM ONE (12:20)
--- NOTE | 2018-04-17 12:30 | OPERATIVE REPORT ---
Operative Report - General Procedure Date: 04/17/18 Planned Procedure: Right shoulder labral repair, rotator cuff debridement, open biceps tenodes Pre-Op Diagnosis: right shoulder biceps tendinitis, labral tear with cyst, rotator cuff disea Procedure Performed: Right shoulder labral repair, subacromial decompression, rotator cuff debridement, open biceps tenodes Post Op Diagnosis: Same - Procedure Note Primary Surgeon: Kevin Turner Estimated Blood Loss (mL): 25 Complications: None - Other Other Information/Narrative: DETAILED PROCEDURE: Anterior perilabral cyst decompression with single anchor labral repair from from 4:00 to 5:00 Subacromial decompression with rotator cuff debridement Mini open sub pecbiceps tenodesis IMPLANTS: Knotless suture tack x1 Fiber tach x1 POSTOPERATIVE PLAN: 0-2 weeks-Sling at all times. Pendulum exercises 5 times per day. 2-6 weeks-Passive range of motion with the following limits: FF to 120, ER to 30, abduction to 120. No active flexion of the biceps. 6-12 weeks-Active range of motion in all planes without limitation. Isometric rotator cuff strengthening is allowed 12-16 weeks-Gradually increase strengthening 16 weeks and beyond-Introduce dynamic activities EXAMINATION UNDER ANESTHESIA: ROM: full Anterior load and shift: grade 1 Posterior load and shift: grade 1 Inferior sulcus: none ARTHROSCOPIC FINDINGS: Rotator interval: Intact Biceps tendon & SLAP: sling showed a small amount of instability. Tendon had no tears, anchor was intact Subscapularis: Intact Rotator Cuff: Fraying at the articular surface of the posterior cuff. Fraying of the bursal side intrasubstance HAGL: Small posterior split of the capsule that is looked to be healed. The inferior glenohumeral ligaments appeared well tensioned Labrum: Focal tear anteriorly from 4 to 5:00 associated with the adonay-labral cyst which was decompressed and fixed with a single anchor Glenoid Cartilage: Intact Humeral Head Cartilage: Intact INDICATION FOR SURGERY: Long history of shoulder pain without instability the pain is anterior and sharp as well as lateral and posterior which radiates up to the neck. A subacromial injection gave him pain relief for 2 months but the pain returned a biceps tendon sheath injection and gave him pain relief for many months but the pain returned. He denies any instability in his exam for laxity was equal to the contralateral side. We decided to focus on the biceps tendon potentially rotator cuff partial-thickness tears as well as the adonay-labral cyst with an associated anterior labral tear. Nonoperative managment failed to resolve symptoms. The risks, benefits, and alternatives were discussed. Risks included pain, bleeding, infection, damage to nearby structures, lack of symptom relief, implant complications, stiffness, need for further surgeries, DVT, PE, stroke, and even . He signed a written consent form. PROCEDURE IN DETAIL: The patient was met in the preoperative holding on the day of the procedure. Operative extremity was signed. Consent was verified. He desired to proceed. Regional anesthesia was obtained in the preoperative area. They were brought to the operating room and surrendered to anesthesia. Once general anesthesia was obtained they were placed in the lateral decubitus position with the operative side up. An axillary roll was placed and all bony prominences were well-padded. They were then prepped and draped in the standard sterile fashion. A surgical timeout was held to confirm the patient procedure, identity, procedure, laterality, allergies, images, and antibiotics. All were in agreement we proceeded. Balanced suspension was applied and a standard diagnostic arthroscopy was performed utilizing posterior and anterior superior portal sites. The anterior superior portal site was created under direct visualization. The findings of the diagnostic arthroscopy can be found above. I assess the posterior capsule and made the decision that without instability a repair of the posterior capsular tissue may lead to tightness without any improvement in pain. I therefore decided to not do a repair of the HAGL posterior. I then used a straight biter to take the biceps tendon off of its insertion of the superior labrum and a sucker shaver was used to smooth out the transition. A mid glenoid portal was then created under direct visualization bordering the subscapularis tendon. I then used a combination of high and low angled elevators to develop the labral tear and release it from off the glenoid neck. A large amount of cystic fluid was seen being decompressed. I then used to the pineapple rasp to finalize my release and abraded the bone to a bleeding bed. A sucker shaver was placed in the interval to debride any loose tissue and further abrade the glenoid neck. Any loose cartilage and degenerative labral tissue was debrided at that time. I placed a single anchors at the 430 o'clock position. The suture was passed using an appropriate 45 degree suture lasso. The labrum was secured using knotless technique. Appropriate tension was confirmed with a probe and the excess suture was cut. The labrum was repaired without a significant capsular shift. Balanced suspension was then released and final images were taken showing the humeral head centered in the glenoid. SUBACROMIAL DECOMPRESSION: The instruments and cannula were then removed from the glenohumeral joint. The scope trocar was placed in the posterior portal and the acromion was felt. It was then inserted just under the acromion scraping along the bone until the CA ligament was felt. The scope trocar was then brought just lateral to the CA ligament and out the anterior incision. The cannula was then brought over the scope trocar arthroscope were inserted. The arthroscope was backed up until the shaver and arthroscope in the subacromial space. I then systemically debrided the bursa using a sucker shaver and radiofrequency ablation wand. A direct lateral incision was made and the bursectomy and decompression was completed through the lateral incision. All soft tissue was debrided from the underside of the acromion and the posterior edge of the CA ligament was lifted. Care was taken to keep the deltoid fascia intact. The rotator cuff was then evaluated and there was no full-thickness tear. There was partial fraying of the cuff tendons and the intrasubstance portion and all loose tissue was debrided with a shaver. Final images were taken. MINI OPEN BICEPS TENODESIS: A 4 cm incision was made near the axillary fold centered over the pectoralis major tendon. Electrocautery was used to obtain hemostasis. The fascia was opened with dissection scissors. Blunt digital dissection was used to identify the intertubercular groove just under the pectoralis major tendon. The long head of the biceps tendon was visualized within this interval. The short head of the biceps was retracted with my finger and the right angle was used to deliver the tendon of the long head of the biceps out of the wound. A rai elevator was then used to debride all synovial tissue from the intertubercular groove. A fibertack was placed high within the groove. Both limbs of the fibertack were pulled on and it was well fixed. I then whipstitched the biceps tendon starting 2 cm proximal to the musculotendinous junction down to the musculotendinous junction and back up to the same 2 cm location with a single limb of the fiber tack. The other suture was placed once through the tendon at the 2 cm location. I then cut all excess tendon off. The suture limb that was passed the single time was then pulled on and this reduced the tendon nicely into the groove. The elbow was fully straightened and there was no excess tension on the repair site. I then tied 7 reverse half hitches alternating to secure the tendon in its place. The wound was then irrigated copiously. The biceps incision was closed with 2-0 Vicryl in the dermis and a running Monocryl and skin. Portal sites were then closed with 3-0 Monocryl buried. Mastisol and Steri-Strips were applied. A sterile dressing and a sling was applied. He was awakened and transferred to the recovery room.
[2018-04-17] MEDS ORDERED: METOCLOPRAMIDE 10 MG/2 ML VIAL ONE (13:17)
[2018-04-17] MEDS ORDERED: SCOPOLAMINE PATCH TOP ONE (14:32)
[2018-04-17] MEDS ORDERED: SCOPOLAMINE PATCH TOP SCH (15:00)
[2018-04-17 15:03] VITALS: BP 114/68
== END 2018-04-17 07:22 | disposition home or self-care (01) ==
LOC: SDS 07:21
PROVIDERS: ATTEND Orthopaedic Surgery
PROC: 0RNJ4ZZ Release Right Shoulder Joint, Percutaneous Endoscopic Approach (ICD-10-PCS; 2018-04-17)
PROC: 0LS10ZZ Reposition Right Shoulder Tendon, Open Approach (ICD-10-PCS; 2018-04-17)
PROC: 0RQJ4ZZ Repair Right Shoulder Joint, Percutaneous Endoscopic Approach (ICD-10-PCS; principal; 2018-04-17 08:45)
DX: M24.111 Other articular cartilage disorders, right shoulder (principal); M75.21 Bicipital tendinitis, right shoulder; M75.81 Other shoulder lesions, right shoulder; M25.811 Other specified joint disorders, right shoulder; I10 Essential (primary) hypertension; Z87.891 Personal history of nicotine dependence
CPT/HCPCS: 23430; 29806; A9270; C1713; J2765; J3490; J7120

== ENCOUNTER 2019-01-24 14:34 | Emergency (ER) | payer OTHER ==
--- NOTE | 2019-01-24 17:26 | ED Physician Documentation ---
PD HPI CHEST PAIN - Stated complaint Stated Complaint: SOA - Chief complaint Chief Complaint: Cardiac - History obtained from History obtained from: Patient - History of Present Illness Timing - onset: Other (For the last week and worse last night he had a sensation of heart racing. It generally happens at night and usually when he is lying down but over the last 24 hours is more and more persistent and even when he is upright. It is associated with some shortness of breath. No calf pain or pedal edema. He did have increased caffeine yesterday.) Review of Systems Constitutional: denies: Fever, Chills, Weight Loss, Sweats Nose: denies: Rhinorrhea / runny nose, Congestion Cardiac: reports: Palpitations. denies: Chest pain / pressure Respiratory: reports: Dyspnea. denies: Cough GI: denies: Abdominal Pain PD PAST MEDICAL HISTORY - Past Medical History Cardiovascular: None Respiratory: None Neuro: None Endocrine/Autoimmune: None GI: Colon polyps, Other : None HEENT: None Psych: None Musculoskeletal: Other Derm: None - Past Surgical History Past Surgical History: Yes General: Bowel surgery, Colonoscopy Ortho: ACL reconstruction - Present Medications Home Medications: Ambulatory Orders Medication Instructions Recorded Confirmed Wheat Dextrin [Benefiber] 1 packet PO DAILY #30 packet 02/19/18 04/16/18 buPROPion [Wellbutrin Xl] 1 tab PO DAILY 04/16/18 04/16/18 - Allergies Allergies/Adverse Reactions: Allergies Allergy/AdvReac Type Severity Reaction Status Date / Time No Known Drug Allergies Allergy Verified 03/05/18 11:28 - Social History Does the pt smoke?: No Smoking Status: Never smoker Does the pt drink ETOH?: Yes Does the pt have substance abuse?: No - Immunizations Immunizations are current?: Yes - POLST Patient has POLST: No PD ED PE NORMAL - Vitals Vital signs reviewed: Yes - General General: Alert and oriented X 3, No acute distress - HEENT HEENT: PERRL, EOMI - Neck Neck: Supple, no meningeal sign, No bony TTP - Cardiac Cardiac: RRR, No murmur - Respiratory Respiratory: No respiratory distress, Clear bilaterally - Abdomen Abdomen: Non tender - Extremities Extremities: No edema, No calf tenderness / cord - Psych Psych: Normal mood, Normal affect Results - Vitals Vitals: Vital Signs - 24 hr 11/24/19 14:46 Temperature 37 C Heart Rate 82 Respiratory 18 Rate Blood Pressure 142/79 H O2 Saturation 97 Oxygen O2 Source Room air - EKG (time done) 1454 Rate: Rate (enter#) (64) Rhythm: NSR Lutz: Normal Intervals: Normal CT QRS: Normal Ischemia: Normal ST segments Computer interpretation: Agree with computer - Labs Labs: Laboratory Tests 01/24/19 01/24/19 01/24/19 17:38 17:38 17:38 WBC 6.8 RBC 5.18 Hgb 16.0 Hct 45.3 MCV 87.5 MCH 30.9 MCHC 35.3 RDW 12.8 Plt Count 324 MPV 9.8 Neut # (Auto) 3.6 Lymph # (Auto) 2.4 [place] # (Auto) 0.6 Eos # (Auto) 0.1 Baso # (Auto) 0.0 Absolute Nucleated RBC 0.00 Nucleated RBC % 0.0 Sodium 140 Potassium 4.0 Chloride 103 Carbon Dioxide 28 Anion Gap 9.0 BUN 12 Creatinine 0.8 Estimated GFR (MDRD) 110 Glucose 103 H Calcium 9.8 Total Bilirubin 1.2 H AST 49 H ALT 102 H Alkaline Phosphatase 41 L Total Protein 8.2 Albumin 4.7 Globulin 3.5 Albumin/Globulin Ratio 1.3 Lipase 30 TSH 1.98 Thyroxine (T4) 6.60 PD MEDICAL DECISION MAKING - ED course ED course: I considered pulmonary embolism in this patient. Clinically the pretest probab ility of pulmonary embolism is less than 15%. I applied to the PERC rules as follows: The patient's age is under 50, heart rate less than 100, oxygen saturation greater than 94%, the patient does not have a history of DVT or PE. Patient has no recent trauma or surgery. The patient has no hemoptysis. The patient is not on exogenous estrogens. The patient does not have clinical signs suggesting DVT. As such the patient ruled out for pulmonary embolism by PERC criteria. 33-year-old gentleman with worsening palpitations. His EKG is normal, and he had no ectopy while in the department. Labs were normal except for very mild transaminitis, probably unrelated. He does have a history of fatty liver in the past which is probably causing that. Departure - Departure Disposition: 01 Home, Self Care Clinical Impression: Palpitations Condition: Good Record reviewed to determine appropriate education?: Yes Instructions: ED Palpitations Comments: Your work-up today was negative, we did not see any abnormal heart rhythms, if symptoms are persistent talk with your primary care physician about a Holter monitor which is a monitor you can wear around more long-term. Return for new or worsening symptoms. Try to avoid caffeine use.
[2019-01-24 17:46] LABS: BASOPHILS % (AUTO) 0.4 %; EOSINOPHILS # (AUTO) 0.1 10^3/uL (0.0-0.7); EOSINOPHILS % (AUTO) 1.9 %; LYMPHOCYTES # (AUTO) 2.4 10^3/uL (1.5-3.5); LYMPHOCYTES % (AUTO) 35.1 %; MEAN CORPUSCULAR HEMOGLOBIN 30.9 pg (27.0-31.0); MEAN CORPUSCULAR HGB CONC 35.3 g/dL (32.0-36.0); MEAN CORPUSCULAR VOLUME 87.5 fL (80.0-94.0); MEAN PLATELET VOLUME 9.8 fL (7.4-11.4); MONOCYTES # (AUTO) 0.6 10^3/uL (0.0-1.0); MONOCYTES % (AUTO) 9.1 %; NEUTROPHILS # (AUTO) 3.6 10^3/uL (1.5-6.6); NEUTROPHILS % (AUTO) 53.2 %; PLT - PLATELET COUNT 324 10^3/uL (130-450); RED BLOOD COUNT 5.18 10^6/uL (4.70-6.10); RED CELL DISTRIBUTION WIDTH 12.8 % (12.0-15.0); WHITE BLOOD COUNT 6.8 x10^3/uL (4.8-10.8)
[2019-01-24 17:56] LABS: ALBUMIN 4.7 g/dL (3.2-5.5); ALBUMIN/GLOBULIN RATIO 1.3 (1.0-2.2); BILIRUBIN,TOTAL 1.2 mg/dL (0.2-1.0); CALCIUM 9.8 mg/dL (8.5-10.3); CREATININE 0.8 mg/dL (0.6-1.2); TOTAL PROTEIN 8.2 g/dL (6.7-8.2)
[2019-01-24 18:11] LABS: T4 (THYROXINE) 6.6 ug/dL (6.09-12.23)
[2019-01-24 18:15] LABS: THYROID STIMULATING HORMONE 1.98 uIU/mL (0.34-5.60)
[2019-01-24 18:30] VITALS: BP 142/93
== END 2019-01-24 18:35 | disposition home or self-care (01) ==
LOC: ED 14:34
DX: R00.2 Palpitations (principal); R74.0 Nonspecific elevation of levels of transaminase and lactic acid dehydrogenase [LDH]
CPT/HCPCS: 36415; 80053; 83690; 84436; 84443; 84481; 85025; 93005; 99283; 99284

== ENCOUNTER 2020-02-15 03:30 | Emergency (ER) | payer OTHER ==
--- NOTE | 2020-02-15 04:10 | ED Physician Documentation ---
PD HPI SYNCOPE - Stated complaint Stated Complaint: HAD LOC AT HOME W/ FALL - Chief complaint Chief Complaint: Neuro - History obtained from History obtained from: Patient - History of Present Illness Timing - onset: Enter time (02:00) Preceding symptoms: Nausea / vomiting, Light headed, Generalized weakness Associated symptoms: Nausea / vomiting. No: Headache, Chest pain, Palpitations Injury occurred: None Pain level max: 0 Pain level now: 0 Similar symptoms before: Has not had sx before Recently seen: Not recently seen - Additional information Additional information: woke approximately 2 AM feeling anxious. He ambulated to bathroom and became lightheaded, generalized weakness, nauseas without vomiting, felt like he was going to pass out and then had syncope. He is uncertain as to length of LOC, but he then regained consciousness and returned to bed. He had ongoing nausea and developed chills and thus friend drove patient to ED. Review of Systems Constitutional: reports: Chills. denies: Fever Eyes: denies: Loss of vision, Decreased vision Cardiac: reports: Reviewed and negative Respiratory: reports: Reviewed and negative GI: reports: Nausea. denies: Abdominal Pain, Vomiting : denies: Incontinent Neurologic: reports: Generalized weakness, Syncope, LOC. denies: Focal weakness, Numbness, Headache, Head injury PD PAST MEDICAL HISTORY - Past Medical History Cardiovascular: None Respiratory: None Neuro: None Endocrine/Autoimmune: None GI: Colon polyps, Other : None HEENT: None Psych: None Musculoskeletal: Other Derm: None - Past Surgical History Past Surgical History: Yes General: Bowel surgery, Colonoscopy Ortho: ACL reconstruction - Present Medications Home Medications: Ambulatory Orders Medication Instructions Recorded Confirmed Ondansetron Odt [Zofran] 4 mg TL Q6H PRN #10 tablet 02/15/20 - Allergies Allergies/Adverse Reactions: Allergies Allergy/AdvReac Type Severity Reaction Status Date / Time No Known Drug Allergies Allergy Verified 02/15/20 03:38 - Social History Does the pt smoke?: No Smoking Status: Never smoker Does the pt drink ETOH?: Yes Does the pt have substance abuse?: No - Immunizations Immunizations are current?: Yes - POLST Patient has POLST: No PD ED PE NORMAL - Vitals Vital signs reviewed: Yes - General General: Alert and oriented X 3, No acute distress, Well developed/nourished - HEENT HEENT: Atraumatic, Other (tacky/pasty mucous membranes) - Neck Neck: Supple, no meningeal sign, No bony TTP - Cardiac Cardiac: RRR, No murmur - Respiratory Respiratory: No respiratory distress, Clear bilaterally - Abdomen Abdomen: Soft, Non tender - Derm Derm: Normal color, Warm and dry - Extremities Extremities: No tenderness to palpate, Normal ROM s pain - Neuro Neuro: Alert and oriented X 3, active directory engineer 2-12 intact, No motor deficit, No sensory deficit, Normal speech Eye Opening: Spontaneous Motor: Obeys Commands Verbal: Oriented GCS Score: 15 Results - Vitals Vitals: Oxygen O2 Source Room air - Labs Labs: Laboratory Tests 02/15/20 02/15/20 04:55 04:55 WBC 9.7 RBC 5.00 Hgb 15.3 Hct 43.3 MCV 86.6 MCH 30.6 MCHC 35.3 RDW 12.4 Plt Count 265 MPV 9.9 Neut # (Auto) 7.1 H Lymph # (Auto) 1.6 [place] # (Auto) 0.8 Eos # (Auto) 0.1 Baso # (Auto) 0.1 Absolute Nucleated RBC 0.00 Nucleated RBC % 0.0 Sodium 137 Potassium 4.0 Chloride 104 Carbon Dioxide 22 Anion Gap 11.0 BUN 18 Creatinine 0.9 Estimated GFR (MDRD) 95 Glucose 131 H Calcium 9.5 Total Bilirubin 1.1 H AST 29 ALT 40 Alkaline Phosphatase 40 L Total Protein 7.1 Albumin 4.3 Globulin 2.8 Albumin/Globulin Ratio 1.5 Lipase 62 H PD MEDICAL DECISION MAKING - ED course Complexity details: reviewed results, re-evaluated patient, considered differential, d/w patient ED course: after IV fluids and zofran, patient is in NAD and reports feeling back to baseline. He has moist mucous membranes. He is comfortable with d/c home. Departure - Departure Disposition: Home, Self Care Clinical Impression: Syncope Qualifiers: Syncope type: unspecified Qualified Code(s): R55 - Syncope and collapse Condition: Good Instructions: ED Fainting Unkn Cause Prescriptions: Ondansetron Odt [Zofran] 4 mg TL Q6H PRN #10 tablet PRN Reason: Nausea / Vomiting Discharge Date/Time: 02/15/20 06:27
[2020-02-15] MEDS ORDERED: SODIUM CHLORIDE 0.9% 1,000 ML IV STA (04:35)
[2020-02-15] MEDS ORDERED: ONDANSETRON 4 MG/2 ML VIAL IVP STA (04:35)
[2020-02-15 04:59] LABS: BASOPHILS # (AUTO) 0.1 10^3/uL (0.0-0.1); BASOPHILS % (AUTO) 0.5 %; EOSINOPHILS # (AUTO) 0.1 10^3/uL (0.0-0.7); EOSINOPHILS % (AUTO) 0.8 %; HGB - HEMOGLOBIN 15.3 g/dL (14.0-18.0); LYMPHOCYTES # (AUTO) 1.6 10^3/uL (1.5-3.5); LYMPHOCYTES % (AUTO) 16.9 %; MEAN CORPUSCULAR HEMOGLOBIN 30.6 pg (27.0-31.0); MEAN CORPUSCULAR HGB CONC 35.3 g/dL (32.0-36.0); MEAN CORPUSCULAR VOLUME 86.6 fL (80.0-94.0); MEAN PLATELET VOLUME 9.9 fL (7.4-11.4); MONOCYTES # (AUTO) 0.8 10^3/uL (0.0-1.0); MONOCYTES % (AUTO) 7.7 %; NEUTROPHILS # (AUTO) 7.1 10^3/uL (1.5-6.6); NEUTROPHILS % (AUTO) 73.8 %; PLT - PLATELET COUNT 265 10^3/uL (130-450); RED CELL DISTRIBUTION WIDTH 12.4 % (12.0-15.0); WHITE BLOOD COUNT 9.7 x10^3/uL (4.8-10.8)
[2020-02-15 05:39] LABS: ALBUMIN 4.3 g/dL (3.2-5.5); ALBUMIN/GLOBULIN RATIO 1.5 (1.0-2.2); BILIRUBIN,TOTAL 1.1 mg/dL (0.2-1.0); CALCIUM 9.5 mg/dL (8.5-10.3); CREATININE 0.9 mg/dL (0.6-1.2); TOTAL PROTEIN 7.1 g/dL (6.7-8.2)
[2020-02-15 06:26] VITALS: BP 110/68
== END 2020-02-15 06:27 | disposition home or self-care (01) ==
LOC: ED 03:30
DX: R55 Syncope and collapse (principal)
CPT/HCPCS: 36415; 80053; 83690; 85025; 96361; 96374; 99284

== ENCOUNTER 2021-03-05 09:32 | Outpatient (CLI) | payer OTHER ==
--- NOTE | 2021-03-05 13:21 | MRI Report ---
PROCEDURE: Shoulder LT W/O INDICATIONS: PAIN IN LEFT SHOULDER TECHNIQUE: Noncontrast oblique coronal T2 fast spin echo with fat saturation, oblique sagittal T1 spin echo and T2 fast spin echo with fat saturation, axial T1 spin echo and T2 fast spin echo with fat saturation t hrough the shoulder. COMPARISON: None. Findings: Supraspinatus: Mild tendinopathy with small partial articular surface tear (601-9; 801-7). Infraspinatus: Mild tendinopathy without evidence of tear. Subscapularis: No evidence of tear. Teres minor: No evidence of tear. Labrum: No evidence of tear. Biceps tendon: No evidence of subluxation or tear. Acromioclavicular joint: Normal alignment. Muscle: No significant atrophy. Bones: No evidence of fracture, contusion, or necrosis. T1 hypointense signal in the visualized osseo us structures, which is nonspecific. Miscellaneous: No glenohumeral joint effusion. Small subacromial/subdeltoid bursal fluid. No intra-articular bodies. Intact coracoclavicular ligament. IMPRESSION: 1. Mild supraspinatus tendinopathy with small partial articular surface tear. 2. Mild subacromial/subdeltoid bursitis. 3. Abnormal bone marrow signal, which is nonspecific but raises concern for myeloproliferative disord er. Reviewed by: Marty Tirado MD on 03/05/2021 11:[address] [facility] Approved by: Marty Tirado MD on 03/05/2021 11:37 AM PST Station ID: [id number]
== END 2021-03-05 09:33 | disposition home or self-care (01) ==
LOC: DI 09:32
PROVIDERS: ATTEND Student in an Organized Health Care Education/Training Program
DX: M75.112 Incomplete rotator cuff tear or rupture of left shoulder, not specified as traumatic (principal); M75.52 Bursitis of left shoulder

== ENCOUNTER 2022-01-14 16:49 | Emergency (ER) | payer OTHER ==
--- NOTE | 2022-01-14 21:15 | ED Physician Documentation ---
PD HPI OPHTHO - Stated complaint Stated Complaint: EYE IRRITATION - Chief complaint Chief Complaint: Heent - History obtained from History obtained from: Patient, Family - History of Present Illness Timing - onset: Enter time (2099), Last night Timing - duration: Days (1) Timing - details: Abrupt onset, Still present Location: Left Quality / character: Other (painless) Associated symptoms: Decreased vision, Headache, Other (red spot to the central vision). No: Redness, Swelling, Tearing, Discharge, Matting, FB sensation, Photophobia, Double vision Contributing factors: Other (was intimate with prior to onset of symptoms.). No: Exposed to conjunctivitis, Recent URI Similar symptoms before: Has not had sx before Recently seen: Not recently seen - Additional information Additional information: 36-year-old Koko Gloria has developed a red spot in his vision directly in the middle. He states that if he closes his left eye he does not have any symptoms. Closing the right eye he can see red to the central portion of his vision like a smear. He indicates this started at about 9pm yesterday after being intimate with his . His father accompanies him today and indicates that he has had a retinal hemorrhage requiring scleral bucking. Review of Systems Constitutional: denies: Fever Eyes: reports: Decreased vision, Irritation. denies: Loss of vision, Photophobia Ears: denies: Ear pain Nose: denies: Rhinorrhea / runny nose, Congestion Throat: denies: Sore throat Cardiac: denies: Chest pain / pressure, Palpitations Respiratory: denies: Dyspnea, Cough GI: denies: Nausea, Vomiting, Constipation, Diarrhea : denies: Dysuria, Frequency PD PAST MEDICAL HISTORY - Past Medical History Cardiovascular: None Respiratory: None Neuro: None Endocrine/Autoimmune: None GI: Colon polyps, Other : None HEENT: None Psych: None Musculoskeletal: Other Derm: None - Past Surgical History Past Surgical History: Yes General: Bowel surgery, Colonoscopy Ortho: ACL reconstruction - Present Medications Home Medications: Ambulatory Orders Medication Instructions Recorded Confirmed Ondansetron Odt [Zofran] 4 mg TL Q6H PRN #10 tablet 02/15/20 - Allergies Allergies/Adverse Reactions: Allergies Allergy/AdvReac Type Severity Reaction Status Date / Time No Known Drug Allergies Allergy Verified 01/14/22 17:57 - Social History Does the pt smoke?: No Smoking Status: Never smoker Does the pt drink ETOH?: Yes Does the pt have substance abuse?: No - Immunizations Immunizations are current?: Yes - POLST Patient has POLST: No PD ED PE NORMAL - Vitals Vital signs reviewed: Yes (hypertensive mild ) - General General: Alert and oriented X 3, No acute distress, Well developed/nourished - HEENT HEENT: Atraumatic, PERRL, EOMI, Other (The fundoscopic exam shows a red reflex (red/orange) and is difficult to examine. The bedside ultrasound did not show the typical rugae of detachment but there is a spot of enhancment near the macula. ) - Neck Neck: Supple, no meningeal sign, No bony TTP - Respiratory Respiratory: No respiratory distress - Derm Derm: Normal color, Warm and dry, No rash - Extremities Extremities: No deformity, No edema - Neuro Neuro: Alert and oriented X 3, healthcare account manager 2-12 intact, No motor deficit, No sensory deficit, Normal speech Eye Opening: Spontaneous Motor: Obeys Commands Verbal: Oriented GCS Score: 15 - Psych Psych: Normal mood, Normal affect Results - Vitals Vitals: Vital Signs - 24 hr 01/14/22 01/14/22 01/14/22 17:53 20:57 21:22 Temperature 36.3 C L Heart Rate 80 81 80 Respiratory 16 16 18 Rate Blood Pressure 145/73 H 124/66 120/76 O2 Saturation 96 98 95 Oxygen O2 Source Room air Procedures - Bedside sono Bedside sono by EMP: With the use of POCUS the left retina is examined there is no typical ruggae of retinal detachment but there is an area of density near the retina PD MEDICAL DECISION MAKING - ED course Complexity details: considered differential, d/w patient, d/w family ED course: 36-year-old male with an apparent vitreal hemorrhage has symptoms now for 24 ho urs. He is encouraged to follow-up tomorrow morning with Dr. Joby Diaz. I was able to contact tact Dr. Diaz by text and he will expect the patient. Departure - Departure Disposition: 01 Home, Self Care Clinical Impression: Vitreous hemorrhage of left eye Condition: Stable Instructions: ED Tear Retinal Follow-Up: Carlos Diaz MD [Provider Admit Priv/Credential] - Comments: Koko, today it looks like you have a retinal tear or vitreal hemorrhage and the recommendation is to get into see the eye surgeon by tomorrow. My recommendation is to give Dr. Diaz's office call in the morning if you are unable to get into see Dr. Diaz call another head machine feeder. Discharge Date/Time: 01/14/22 21:23
[2022-01-14 21:23] VITALS: BP 120/76
== END 2022-01-14 21:23 | disposition home or self-care (01) ==
LOC: ED 16:49
DX: H43.12 Vitreous hemorrhage, left eye (principal)
CPT/HCPCS: 99281; 99282

== ENCOUNTER 2022-08-17 22:55 | Emergency (ER) | payer OTHER ==
--- NOTE | 2022-08-18 00:36 | ED Physician Documentation ---
PD HPI ABD PAIN - Stated complaint Stated Complaint: ABD PX,NAUSEA - Chief complaint Chief Complaint: Abd Pain - History obtained from History obtained from: Patient - Additional information Additional information: HPI from patient. Patient was seen and clinic (on [address]) this past and was diagnosed with right inguinal/groin hernia. Tonight at approximately 10:30 PM, the patient was at home, at rest (lying in bed) when he had mild right groin pain reminiscent of the pain that resulted in him visiting the clinic. The pain was not severe, but he then had the urge to defecate, became lightheaded, tremulous, and felt like his throat was "closing up" (per patient). The patient then walked to the bathroom, continuing to feel lightheaded, had a small bowel movement. He felt as though he might pass out but he did not lose consciousness nor fall to the ground. He was able to get back into the bed. By that time, the inguinal/groin pain had resolved, but patient continued to feel lightheaded and tremulous and thus called 911. Review of Systems Cardiac: reports: Reviewed and negative Respiratory: reports: Reviewed and negative GI: reports: Abdominal Pain (resolved), Nausea. denies: Vomiting, Constipation, Diarrhea : denies: Incontinent Musculoskeletal: reports: Reviewed and negative Neurologic: reports: Generalized weakness (resolved). denies: Focal weakness, Numbness, Headache PD PAST MEDICAL HISTORY - Past Medical History Cardiovascular: None Respiratory: None Neuro: None Endocrine/Autoimmune: None GI: Colon polyps, Other : None HEENT: None Psych: None Musculoskeletal: Other Derm: None - Past Surgical History Past Surgical History: Yes General: Bowel surgery, Colonoscopy Ortho: ACL reconstruction - Present Medications Home Medications: Ambulatory Orders Medication Instructions Recorded Confirmed Ondansetron Odt [Zofran] 4 mg TL Q6H PRN #10 tablet 02/15/20 - Allergies Allergies/Adverse Reactions: Allergies Allergy/AdvReac Type Severity Reaction Status Date / Time No Known Drug Allergies Allergy Verified 01/14/22 17:57 - Social History Does the pt smoke?: No Smoking Status: Never smoker Does the pt drink ETOH?: Yes Does the pt have substance abuse?: No - Immunizations Immunizations are current?: Yes - POLST Patient has POLST: No PD ED PE NORMAL - Vitals Vital signs reviewed: Yes - General General: Alert and oriented X 3, No acute distress, Well developed/nourished - Cardiac Cardiac: RRR, No murmur - Respiratory Respiratory: No respiratory distress, Clear bilaterally - Abdomen Abdomen: Soft, Non tender, Non distended - Free text exam Free text exam: no visible nor palpable right inguinal hernia including with valsalva Results - Vitals Vitals: Oxygen O2 Source Room air - EKG (time done) No standard instances EKG releavant findings:: EKG personally interpreted by author of this note. Relevant findings are: Rate: Rate (enter#) (48) Rhythm: Sinus bradycardia [place]: Normal Intervals: Normal [place] QRS: Normal Ischemia: Normal ST segments - Labs Labs: Laboratory Tests 08/18/22 08/18/22 08/18/22 01:21 01:21 01:21 WBC 5.4 RBC 4.06 L Hgb 12.4 L Hct 36.9 L MCV 90.9 MCH 30.5 MCHC 33.6 RDW 15.9 H Plt Count 216 MPV 9.4 Neut # (Auto) 2.7 Lymph # (Auto) 2.1 [place] # (Auto) 0.4 Eos # (Auto) 0.1 Baso # (Auto) 0.0 Absolute Nucleated RBC 0.00 Nucleated RBC % 0.0 Sodium 140 Potassium 3.5 Chloride 109 Carbon Dioxide 24 Anion Gap 7.0 BUN 12 Creatinine 0.8 Estimated GFR (MDRD) 108 Glucose 99 Calcium 8.8 Total Bilirubin 0.5 AST 27 ALT 25 Alkaline Phosphatase 148 H Troponin I High Sens 7.0 Total Protein 7.7 Albumin 4.3 Globulin 3.4 Albumin/Globulin Ratio 1.3 Lipase 36 PD Medical Decision Making - ED course Complexity details: reviewed results, re-evaluated patient, considered differential, d/w patient ED course: Tests ordered and results reviewed by me: EKG, CBC, your abdominal panel, troponin. There are no concerning or diagnostic findings on this test. EKG shows sinus bradycardia although he is normotensive during his ED stay (some mild hypertensive readings, but, more importantly, no hypotensive readings). CBC is normal except for mildly low h/h (hgb 12.4) and ER abdominal panel normal except for mildly elevated alkaline phosphatase. Normal hs-cTn. The etiology of patient's symptoms is not apparent at this time. Given his description of the sequence of events, I suspect he had a vasovagal episode that was set in motion with the right inguinal pain. If this pain is indeed due to a hernia, at this time and on my exam, there is not a palpable nor visible hernia. This certainly possible the patient has a hernia that spontaneously reduces. Departure - Departure Disposition: 01 Home, Self Care Clinical Impression: Near syncope Condition: Good Instructions: ED Near Syncope Unkn Follow-Up: DESIRE HARRIS ARNP [Primary Care Provider] - Comments: There were no concerning or diagnostic findings on tonight's tests. Your vital signs including blood pressure and heart rate were within normal limits during your ER stay. As we discussed, the description of your symptoms is suggestive of an episode of a drop in your blood pressure. However, since the blood pressure was not measured at that time, this is only suppositional. Furthermore, if you did have a low blood pressure causing your symptoms, there is a list of causes of a drop in blood pressure that range from common and benign to some less common but dangerous causes. With the test performed tonight, and the observation including vital signs and EKG, more serious causes are unlikely at this time. I recommend you follow-up with your primary care provider for reevaluation. Discharge Date/Time: 08/18/22 03:47
[2022-08-18 01:26] LABS: BASOPHILS % (AUTO) 0.2 %; EOSINOPHILS # (AUTO) 0.1 10^3/uL (0.0-0.7); EOSINOPHILS % (AUTO) 2.2 %; HCT - HEMATOCRIT 36.9 % (42.0-52.0); HGB - HEMOGLOBIN 12.4 g/dL (14.0-18.0); LYMPHOCYTES # (AUTO) 2.1 10^3/uL (1.5-3.5); LYMPHOCYTES % (AUTO) 39.3 %; MEAN CORPUSCULAR HEMOGLOBIN 30.5 pg (27.0-31.0); MEAN CORPUSCULAR HGB CONC 33.6 g/dL (32.0-36.0); MEAN CORPUSCULAR VOLUME 90.9 fL (80.0-94.0); MEAN PLATELET VOLUME 9.4 fL (7.4-11.4); MONOCYTES # (AUTO) 0.4 10^3/uL (0.0-1.0); MONOCYTES % (AUTO) 7.2 %; NEUTROPHILS # (AUTO) 2.7 10^3/uL (1.5-6.6); NEUTROPHILS % (AUTO) 50.9 %; PLT - PLATELET COUNT 216 10^3/uL (130-450); RED BLOOD COUNT 4.06 10^6/uL (4.70-6.10); RED CELL DISTRIBUTION WIDTH 15.9 % (12.0-15.0); WHITE BLOOD COUNT 5.4 x10^3/uL (4.8-10.8)
[2022-08-18 01:38] LABS: ALBUMIN 4.3 g/dL (3.2-5.5); ALBUMIN/GLOBULIN RATIO 1.3 (1.0-2.2); BILIRUBIN,TOTAL 0.5 mg/dL (0.2-1.0); CALCIUM 8.8 mg/dL (8.5-10.3); CREATININE 0.8 mg/dL (0.6-1.2); POTASSIUM 3.5 mmol/L (3.5-5.0); TOTAL PROTEIN 7.7 g/dL (6.7-8.2)
[2022-08-18 03:50] VITALS: BP 138/81
== END 2022-08-18 03:47 | disposition home or self-care (01) ==
LOC: ED 22:55
DX: R55 Syncope and collapse (principal)
CPT/HCPCS: 36415; 80053; 83690; 84484; 85025; 93005; 99283; 99284

== ENCOUNTER 2022-10-17 10:05 | Day surgery (SDC) | payer OTHER ==
[~2022-10-17 10:05] MED LIST: BUPIVACAINE 0.25% PF 30 ML VIAL ONE
[2022-10-17] MEDS ORDERED: ceFAZolin 2 GM VIAL ONE (10:19)
[2022-10-17] MEDS ORDERED: LACTATED RINGERS 1,000 ML IV ONE (10:55)
[2022-10-17] MEDS ORDERED: NALOXONE 0.4 MG/ML VIAL IVP PRN (11:15)
[2022-10-17] MEDS ORDERED: ONDANSETRON 4 MG/2 ML VIAL IVP PRN (11:15)
[2022-10-17] MEDS ORDERED: ATROPINE ABBOJECT 1 MG/10 ML SYRINGE IVP PRN (11:15)
[2022-10-17] MEDS ORDERED: fentaNYL 100 MCG/2 ML VIAL IVP PRN (11:15)
[2022-10-17] MEDS ORDERED: MORPHINE 2 MG/ML CARPUJECT IVP PRN (11:15)
[2022-10-17] MEDS ORDERED: HYDROmorphone 0.5 MG/0.5 ML SYRINGE IVP PRN (11:15)
[2022-10-17] MEDS ORDERED: fentaNYL 100 MCG/2 ML VIAL ONE (11:57)
[2022-10-17] MEDS ORDERED: LACTATED RINGERS 1,000 ML IV SCH (12:00)
--- NOTE | 2022-10-17 12:03 | ANESTHESIA ---
Pre-Anesthesia VS, & Labs - Diagnosis bilateral inguinal hernias - Procedure bilateral laparoscopic hernia repair with mesh Vital Signs: Temp Pulse Resp BP Pulse Ox O2 Flow Rate 36 C L 59 L 15 131/86 H 99 10/17/22 10:28 10/17/22 10:28 10/17/22 10:28 10/17/22 10:28 10/17/22 10:28 Height: 6 ft Weight (kg): 102 kg Body Mass Index: 30.4 BMI Classification: Obese - NPO >8 hours Home Medications and Allergies Home Medications: Ambulatory Orders Imatinib Mesylate [Gleevec] 400 mg PO DAILY 10/11/22 Active Medications Atropine Sulfate (Atropine Abboject 1 Mg/10 Ml Syringe) 0.5 mg IVP Q5M PRN PRN Reason: Bradycardia Stop: 10/18/22 11:15 Fentanyl (Fentanyl 100 Mcg/2 Ml Vial) 25 - 50 mcg IVP Q5M PRN PRN Reason: BREAKTHROUGH PAIN (2nd Choice) Stop: 10/18/22 11:15 Hydromorphone HCl (Hydromorphone 0.5 Mg/0.5 Ml Syringe) 0.2 - 0.6 mg IVP Q5M PRN PRN Reason: PAIN (First Choice) Stop: 10/18/22 11:15 Lactated Ringer's (Lr) 1,000 mls @ 100 mls/hr IV .Q10H SANTI Stop: 10/17/22 21:59 Morphine Sulfate (Morphine 2 Mg/Ml Carpuject) 2 - 4 mg IVP Q5M PRN PRN Reason: PAIN (3rd Choice) Stop: 10/18/22 11:15 Naloxone HCl (Naloxone 0.4 Mg/Ml Vial) 0.1 mg IVP Q2M PRN PRN Reason: RESP RATE <8 Stop: 10/18/22 11:15 Ondansetron HCl (Ondansetron 4 Mg/2 Ml Vial) 4 mg IVP ONCE PRN PRN Reason: N/V (First Choice) Stop: 10/18/22 11:15 Imatinib Mesylate [Gleevec] 400 mg PO DAILY 10/11/22 Allergies/Adverse Reactions: Allergies Allergy/AdvReac Type Severity Reaction Status Date / Time No Known Drug Allergies Allergy Verified 01/14/22 17:57 Anes History & Medical History - Anesthetic History Anesthesia Complications: reports: No previous complications - Medical History Cardiovascular: reports: None Pulmonary: reports: None Gastrointestinal: reports: Colon polyps, Diverticulitis, Other Urinary: reports: None Neuro: reports: None Musculoskeletal: reports: None, Other Endocrine/Autoimmune: reports: None Blood Disorders: reports: Anemia (Leukemia) Skin: reports: None Smoking Status: Never smoker Psychosocial: reports: No issues indicated History of Cancer?: Yes (Leukemia, 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
--- NOTE | 2022-10-17 12:08 | HISTORY & PHYSICAL EXAMINATION ---
Chief Complaint - Chief Complaint Chief Complaint: here for hernia surgery History of Present Illness - History Obtained From Records Reviewed: yes History obtained from: pt Exam Limitations: none - History of Present Illness HPI Comment/Other: painful right inguinal hernia bulge History - Past Medical History Cardiovascular: reports: None Respiratory: reports: None Neuro: reports: None Endocrine/Autoimmune: reports: None GI: reports: Colon polyps, Diverticulitis, Other : reports: None HEENT: reports: None Psych: reports: Panic attacks, ADD/ADHD, Post traumatic stress disorder Musculoskeletal: reports: None, Other Derm: reports: None MRSA Hx?: No - Past Surgical History General: reports: Bowel surgery, Colonoscopy Ortho: reports: ACL reconstruction, Rotator cuff repair - POLST Patient has POLST: No Meds/Allgy - Home Medications Home Medications: Ambulatory Orders Medication Instructions Recorded Confirmed Imatinib Mesylate [Gleevec] 400 mg PO DAILY 10/11/22 10/17/22 - Allergies Allergies/Adverse Reactions: Allergies Allergy/AdvReac Type Severity Reaction Status Date / Time No Known Drug Allergies Allergy Verified 01/14/22 17:57 Review of Systems - Other Findings Other Findings: 10 pt ros as above otherwise unremarkable Exam - Vital Signs Vital Signs: Vital Signs x48h Temp Pulse Resp BP Pulse Ox 10/17/22 10:28 36 C L 59 L 15 131/86 H 99 - Physical Exam General Appearance: positive: No acute distress, Alert Eyes Bilateral: positive: PERRL, EOMI ENT: positive: No signs of dehydration Neck: positive: No JVD, Trachea midline Respiratory: positive: No respiratory distress, Breath sounds nml Cardiovascular: positive: Regular rate & rhythm Abdomen: positive: Other (midline scar bilateral inguinal hernias) Neurologic/Psychiatric: positive: Oriented x3 Conclusion/Plan - Problem List (1) Inguinal hernia bilateral, non-recurrent Conclusion/Plan: plan lapraroscopic repair. possible open right inguinal hernia repair. parq held and consent obtained
[2022-10-17] MEDS ORDERED: ONDANSETRON 4 MG/2 ML VIAL ONE ×2 (12:49→16:02)
[2022-10-17] MEDS ORDERED: PROPOFOL 500 MG/50 ML 500 MG/50 ML VIAL ONE (12:49)
[2022-10-17] MEDS ORDERED: DEXAMETHASONE 4 MG/ML VIAL ONE (12:49)
[2022-10-17] MEDS ORDERED: ROCURONIUM 50 MG/5 ML VIAL ONE (12:49)
[2022-10-17] MEDS ORDERED: BUPIVACAINE 0.25% PF 30 ML VIAL SUBQ ONE ×2 (12:55)
[2022-10-17] MEDS ORDERED: SUGAMMADEX 200 MG/2 ML VIAL IVP ONE (13:41)
[2022-10-17] MEDS ORDERED: LIDOCAINE-PF 2% 10 ML AMP SUBQ ONE (13:41)
[2022-10-17] MEDS ORDERED: LACTATED RINGERS 200 ML IV ONE (14:04)
[2022-10-17] MEDS ORDERED: HYDROcod/ACETAM 5/325 MG TABLET PO PRN (14:19)
--- NOTE | 2022-10-17 14:38 | OPERATIVE REPORT ---
Operative Report - General Procedure Date: 10/17/22 Planned Procedure: laparoscopic bilateral inguinal hernia repair Pre-Op Diagnosis: bilateral inguinal hernias Procedure Performed: laparoscopic bilateral inguinal hernia repairs Post Op Diagnosis: bilateral direct inguinal hernia - Procedure Note Primary Surgeon: roula arambula Anesthesia Technique: General ET tube, Local Pathology: none Estimated Blood Loss (mL): 2 Drain/Tube Type: Other (none) Indications: symptomatic inguinal hernia Findings: as above large bard preform mesh Complications: none - Other Other Information/Narrative: The patient was prepped identified brought to the operating room and placed in supine position. Sequential compression devices were placed. General endotracheal anesthesia was induced. Malik catheter was placed. He was prepped and draped in a sterile fashion and given preoperative antibiotics. Local anesthetic was given to the operative area. A 3 cm infraumbilical incision was made. A 2 and half centimeter incision was made on the fascia just right lateral of midline. The preperitoneal space was developed with digital blunt dissection. A Ortiz trocar was placed and secured with 3 interrupted 0 Vicryl sutures. The preperitoneal space was further developed using the scope. In midline two 5 mm trochars were placed. The right inguinal hernia was first approached. The preperitoneal space was further developed. The peritoneum was further brought down. There was no indirect inguinal hernia. The inferior epigastrics were kept along the abdominal wall. The patient had a direct inguinal hernia. The left side was then approached. Dissection proceeded in a similar fashion. A pocket was created on both sides to allow for large preformed mesh. Bard large preformed mesh was placed bilaterally and secured at the pubic tubercle along Benjamin's ligament and anteriorly under the rectus musculature. The mesh lay in good position. CO2 was evacuated and trochars removed under vision. Fascia at the periumbilical area was closed with a total of 4 interrupted 0 Vicryl sutures. Skin was closed with a running 4-0 Monocryl subcuticular suture. Dressings were applied. The Malik catheter was removed. The patient tolerated the procedure well was awakened and brought to recovery in good condition.
[2022-10-17] MEDS ORDERED: HYDROcod/ACETAM 5/325 MG TABLET ONE (15:25)
--- NOTE | 2022-10-17 15:37 | ANESTHESIA POST OP EVALUATION ---
Anesthesia Post Eval - Post Anesthesia Eval Vitals: Last Vital Signs Temp 36 C L 10/17/22 15:25 Pulse 70 10/17/22 15:25 Resp 14 10/17/22 15:25 BP 122/80 10/17/22 14:48 Pulse Ox 96 10/17/22 15:25 O2 Flow Rate CV Function Including HR & BP: Stable Pain Control: Satisfactory Nausea & Vomiting: Negative Mental Status: Baseline Respiratory Status: Airway Patent Hydration Status: Satisfactory Anesthesia Complications: None
[2022-10-17 16:20] VITALS: BP 135/86; O2SAT 100
== END 2022-10-17 10:06 | disposition home or self-care (01) ==
LOC: SDS 10:05
PROVIDERS: ATTEND Surgery
DX: K40.20 Bilateral inguinal hernia, without obstruction or gangrene, not specified as recurrent (principal); E66.9 Obesity, unspecified; Z68.30 Body mass index [BMI] 30.0-30.9, adult
CPT/HCPCS: 49505; A9270; C1781; J7120

== ENCOUNTER 2022-11-13 23:53 | Emergency (ER) | payer OTHER ==
--- NOTE | 2022-11-14 00:54 | ED Physician Documentation ---
History of Present Illness - Stated complaint Stated Complaint: LIGHT HEADED - Chief complaint Chief Complaint: Cardiac - History obtained from History obtained from: Patient - Additonal information Additional information: 37-year-old man with history of leukemia on oral chemotherapy Presents with high blood pressure reading last week at his doctor's office and elevated blood pressure on home cuff this evening. Patient also states that he has PTSD and anxiety and was feeling very stressed out about the high blood pressure readings. Endorses some intermittent lightheadedness but is not having any upon my history and exam. Denies chest pain, shortness of breath, nausea, diaphoresis, FND PD PAST MEDICAL HISTORY - Past Medical History Cardiovascular: Hypertension Respiratory: None Neuro: None Endocrine/Autoimmune: None GI: Colon polyps, Diverticulitis, Other : None HEENT: None Psych: Panic attacks, ADD/ADHD, Post traumatic stress disorder Musculoskeletal: None, Other Derm: None - Past Surgical History Past Surgical History: Yes General: Bowel surgery, Colonoscopy Ortho: ACL reconstruction, Rotator cuff repair - Present Medications Home Medications: Ambulatory Orders Medication Instructions Recorded Confirmed Imatinib Mesylate [Gleevec] 400 mg PO DAILY 10/11/22 11/14/22 - Allergies Allergies/Adverse Reactions: Allergies Allergy/AdvReac Type Severity Reaction Status Date / Time No Known Drug Allergies Allergy Verified 11/13/22 23:57 - Social History Does the pt smoke?: No Smoking Status: Never smoker Does the pt drink ETOH?: Yes Does the pt have substance abuse?: No - Immunizations Immunizations are current?: Yes - POLST Patient has POLST: No PD ED PE NORMAL - Vitals Vital signs reviewed: Yes - General General: Alert and oriented X 3, No acute distress, Well developed/nourished - HEENT HEENT: Atraumatic, PERRL, EOMI, Moist mucous membranes, Pharynx benign - Neck Neck: Supple, no meningeal sign - Cardiac Cardiac: RRR - Respiratory Respiratory: No respiratory distress, Clear bilaterally - Derm Derm: Normal color, Warm and dry - Neuro Neuro: speech scientist 2-12 intact, No motor deficit, No sensory deficit Results - Vitals Vitals: Vital Signs - 24 hr 11/13/22 11/14/22 23:57 00:12 Temperature 36.5 C Heart Rate 62 65 Respiratory 16 16 Rate Blood Pressure 160/90 H 146/96 H O2 Saturation 99 97 Oxygen O2 Source Room air PD Medical Decision Making - ED course ED course: 37-year-old man presented to the ED with anxiety and concern about elevated blood pressure. His blood pressure improved on its own in the emergency department and I discussed that we could consider starting medications or he can pursue an nonmedication means of healthy blood pressure management including diet and exercise. Patient opted for the latter and will follow up with his primary care provider. Return precautions given. Departure - Departure Disposition: 01 Home, Self Care Clinical Impression: PTSD (post-traumatic stress disorder), Anxiety, Dizziness Condition: Good Instructions: Choices Low Salt Comments: You were seen in the emergency department for high blood pressure. It improved on its own without medication and was 140/80 when the doctor saw you, which is a pretty good blood pressure. Please follow-up with your primary care provider to discuss medication and non- medication options for keeping your blood pressure in a healthy range and return to the emergency department if you have any new or worsening symptoms or other concerns.
[2022-11-14 01:23] VITALS: BP 144/89; O2SAT 100
== END 2022-11-14 01:19 | disposition home or self-care (01) ==
LOC: ED 23:53
DX: F43.10 Post-traumatic stress disorder, unspecified (principal); F41.9 Anxiety disorder, unspecified; R42 Dizziness and giddiness; Z79.899 Other long term (current) drug therapy
CPT/HCPCS: 99281; 99283

== ENCOUNTER 2023-04-25 20:02 | Emergency (ER) | payer OTHER ==
[2023-04-25 20:33] LABS: BASOPHILS % (AUTO) 0.3 %; EOSINOPHILS # (AUTO) 0.1 10^3/uL (0.0-0.7); HCT - HEMATOCRIT 40.9 % (42.0-52.0); LYMPHOCYTES # (AUTO) 1.9 10^3/uL (1.5-3.5); MEAN CORPUSCULAR HEMOGLOBIN 31.8 pg (27.0-31.0); MEAN CORPUSCULAR HGB CONC 34.2 g/dL (32.0-36.0); MEAN PLATELET VOLUME 9.6 fL (7.4-11.4); MONOCYTES # (AUTO) 0.6 10^3/uL (0.0-1.0); MONOCYTES % (AUTO) 10.4 %; NEUTROPHILS # (AUTO) 3.4 10^3/uL (1.5-6.6); NEUTROPHILS % (AUTO) 56.1 %; PLT - PLATELET COUNT 286 10^3/uL (130-450)
[2023-04-25] MEDS: SODIUM CHLORIDE 0.9% 1,000 ML IV STA (20:42)
[2023-04-25 20:51] LABS: ALBUMIN 4.8 g/dL (3.2-5.5); ALBUMIN/GLOBULIN RATIO 1.6 (1.0-2.2); BILIRUBIN,TOTAL 0.4 mg/dL (0.2-1.0); CALCIUM 9.9 mg/dL (8.5-10.3); CREATININE 0.8 mg/dL (0.6-1.3); POTASSIUM 3.7 mmol/L (3.5-4.5); TOTAL PROTEIN 7.8 g/dL (6.4-8.9)
--- NOTE | 2023-04-25 20:59 | ED Physician Documentation ---
History of Present Illness - Stated complaint Stated Complaint: DIZZY/LIGHTHEAD - Chief complaint Chief Complaint: Neuro - History obtained from History obtained from: Patient - History of Present Illness Pain level max: 0 Pain level now: 0 - Additonal information Additional information: Patient is a 38-year-old male who presents to the emergency department with intermittent dizziness over the past several days. He states these episodes last for anywhere from 30 seconds to a minute. Feels lightheaded and dizzy. Presyncopal. Has not actually passed out. No chest pain. No palpitations. Nothing seems to make it better or worse. Happened tonight when he was with friends. Decided to come and get evaluated. He is currently being treated for CML. No cardiac history. Patient is currently taking Gleevec. No other medications. States has been eating and drinking normally. No recent travel or antibiotics. No leg swelling. Review of Systems Constitutional: denies: Fever, Chills Nose: denies: Rhinorrhea / runny nose, Congestion GI: denies: Vomiting, Diarrhea Skin: denies: Rash Musculoskeletal: denies: Neck pain, Back pain Neurologic: denies: Headache, Head injury PD PAST MEDICAL HISTORY - Past Medical History Past Medical History: Yes Cardiovascular: Hypertension Respiratory: None Neuro: None Endocrine/Autoimmune: None GI: Colon polyps, Diverticulitis, Other : None HEENT: None Psych: Panic attacks, ADD/ADHD, Post traumatic stress disorder Musculoskeletal: None, Other Derm: None Other Past Medical History: Leukemia - Past Surgical History Past Surgical History: Yes General: Bowel surgery, Colonoscopy Ortho: ACL reconstruction, Rotator cuff repair - Present Medications Home Medications: Ambulatory Orders Medication Instructions Recorded Confirmed Imatinib Mesylate [Gleevec] 400 mg PO DAILY 10/11/22 04/25/23 - Allergies Allergies/Adverse Reactions: Allergies Allergy/AdvReac Type Severity Reaction Status Date / Time No Known Drug Allergies Allergy Verified 04/25/23 20:10 - Social History Does the pt smoke?: No Smoking Status: Never smoker Does the pt drink ETOH?: Yes Does the pt have substance abuse?: No - Immunizations Immunizations are current?: Yes - POLST Patient has POLST: No PD ED PE NORMAL - Vitals Vital signs reviewed: Yes - General General: Alert and oriented X 3, No acute distress - HEENT HEENT: PERRL, Moist mucous membranes - Neck Neck: Supple, no meningeal sign - Cardiac Cardiac: RRR, No murmur, Strong equal pulses - Respiratory Respiratory: No respiratory distress, Clear bilaterally - Abdomen Abdomen: Soft, Non tender, Non distended - Back Back: No CVA TTP, No spinal TTP - Derm Derm: Warm and dry - Extremities Extremities: No edema, No calf tenderness / cord - Neuro Neuro: Alert and oriented X 3 - Psych Psych: Normal mood, Normal affect Results - Vitals Vitals: Vital Signs - 24 hr 04/25/23 04/25/23 04/25/23 20:06 21:30 22:00 Temperature 36.1 C L Heart Rate 109 H 82 80 Respiratory 18 12 15 Rate Blood Pressure 150/98 H 143/81 H 139/83 H O2 Saturation 100 97 97 Oxygen O2 Source Room air - EKG (time done) 2049 EKG releavant findings:: EKG personally interpreted by author of this note. Relevant findings are: Rate: Rate (enter#) (81) Rhythm: NSR [place]: Normal Ischemia: Normal ST segments, Q waves (III, aVF) - Labs Labs: Laboratory Tests 04/25/23 04/25/23 04/25/23 20:23 20:23 21:00 WBC 6.0 RBC 4.40 L Hgb 14.0 Hct 40.9 L MCV 93.0 MCH 31.8 H MCHC 34.2 RDW 14.0 Plt Count 286 MPV 9.6 Neut # (Auto) 3.4 Lymph # (Auto) 1.9 [place] # (Auto) 0.6 Eos # (Auto) 0.1 Baso # (Auto) 0.0 Absolute Nucleated RBC 0.00 Nucleated RBC % 0.0 Sodium 138 Potassium 3.7 Chloride 104 Carbon Dioxide 27 Anion Gap 7.0 BUN 15 Creatinine 0.8 Estimated GFR (MDRD) 107 Glucose 91 Calcium 9.9 Total Bilirubin 0.4 AST 25 ALT 38 Alkaline Phosphatase 90 Total Protein 7.8 Albumin 4.8 Globulin 3.0 Albumin/Globulin Ratio 1.6 Lipase 30 Urine Color YELLOW Urine Clarity CLEAR Urine pH 6.0 Ur Specific [place] <=1.005 Urine Protein NEGATIVE Urine Glucose (UA) NEGATIVE Urine Ketones NEGATIVE Urine Occult Blood NEGATIVE Urine Nitrite NEGATIVE Urine Bilirubin NEGATIVE Urine Urobilinogen 0.2 (NORMAL) Ur Leukocyte Esterase NEGATIVE Ur Microscopic Review NOT INDICATED Urine Culture Comments NOT INDICATED PD Medical Decision Making - ED course Complexity details: reviewed results, re-evaluated patient, considered differential, d/w patient ED course: 38-year-old male with intermittent episodes of dizziness over the past several weeks. No chest pain. No shortness of breath. Did have mild tachycardia upon arrival here this resolved with IV fluids. He is asymptomatic in the emergency department. No significant lab abnormalities. Currently is being treated for CML with Gleevec. No acute findings on EKG. No arrhythmias on telemetry. Normal cerebellar testing. Normal gait. NIH stroke scale of 0. No indication for emergent head CT. Concern for potential arrhythmia, recommend follow-up with his doctor for a Zio patch/Holter monitor for further evaluation. Patient is asymptomatic in the emergency department. No recent travel. No calf swelling. No history of blood clots. Patient counseled regarding signs and symptoms for which I believe and urgent re-evaluation would be necessary. Patient with good understanding of and agreement to plan and is comfortable going home at this time This document was made in part using voice recognition software. While efforts are made to proofread this document, sound alike and grammatical errors may occur. Departure - Departure Disposition: 01 Home, Self Care Clinical Impression: Near syncope, Dehydration Condition: Good Instructions: ED Near Syncope Unkn Follow-Up: your,doctor within 1 week [Other] Comments: Please follow-up with your doctor for further care. It is recommended you have a Zio patch or Holter monitor placed to evaluate for any potential arrhythmias. Make sure you are drinking plenty of water at home. Please return if you worsen. Your labs do not show any significant abnormalities today. Forms: PCP List Discharge Date/Time: 04/25/23 22:12
[2023-04-25 21:10] LABS: BILIRUBIN,URINE NEGATIVE (NEGATIVE); GLUCOSE, URINE (UA) NEGATIVE (NEGATIVE); KETONES,URINE (UA) NEGATIVE (NEGATIVE); LEUKOCYTE ESTERASE, URINE NEGATIVE (NEGATIVE); NITRITE,URINE NEGATIVE (NEGATIVE); OCCULT BLOOD,URINE NEGATIVE (NEGATIVE); PROTEIN,URINE NEGATIVE (NEGATIVE); UROBILINOGEN,URINE 0.2 (NORMAL) E.U./dL (NORMAL)
[2023-04-25 21:13] LABS: CLARITY,URINE CLEAR (CLEAR)
[2023-04-25 22:14] VITALS: BP 139/83; O2SAT 97
== END 2023-04-25 22:12 | disposition home or self-care (01) ==
LOC: ED 20:02
DX: E86.0 Dehydration (principal); R55 Syncope and collapse; C92.10 Chronic myeloid leukemia, BCR/ABL-positive, not having achieved remission; Z79.899 Other long term (current) drug therapy
CPT/HCPCS: 36415; 80053; 81001; 81003; 83690; 85025; 87086; 93005; 96360; 99283

== ENCOUNTER 2023-05-09 20:21 | Emergency (ER) | payer OTHER ==
--- NOTE | 2023-05-09 20:41 | ED Physician Documentation ---
History of Present Illness - Stated complaint Stated Complaint: HEART PALP/SOA/NAUSEA - Chief complaint Chief Complaint: Cardiac - History obtained from History obtained from: Patient - Additonal information Additional information: HPI from patient. Patient c/o sudden onset rapid palpitations at approximately 4 PM today while at rest at home. He has lightheadedness with the palpitations but does not feel like he is going to pass out. Has similar symptoms before and was T+R from this ED 04/25 for same. Denies dyspnea, chest pain, denies leg swelling. Denies cough, denies hemoptysis Review of Systems Constitutional: denies: Fever, Chills, Sweats Cardiac: reports: Palpitations. denies: Chest pain / pressure, Pedal edema, Calf pain Respiratory: reports: Reviewed and negative GI: reports: Reviewed and negative PD PAST MEDICAL HISTORY - Past Medical History Cardiovascular: Hypertension Respiratory: None Neuro: None Endocrine/Autoimmune: None GI: Colon polyps, Diverticulitis, Other : None HEENT: None Psych: Panic attacks, ADD/ADHD, Post traumatic stress disorder Musculoskeletal: None, Other Derm: None - Past Surgical History Past Surgical History: Yes General: Bowel surgery, Colonoscopy Ortho: ACL reconstruction, Rotator cuff repair - Present Medications Home Medications: Ambulatory Orders Medication Instructions Recorded Confirmed Imatinib Mesylate [Gleevec] 400 mg PO DAILY 10/11/22 05/09/23 - Allergies Allergies/Adverse Reactions: Allergies Allergy/AdvReac Type Severity Reaction Status Date / Time No Known Drug Allergies Allergy Verified 05/09/23 20:28 - Social History Does the pt smoke?: No Smoking Status: Never smoker Does the pt drink ETOH?: Yes Does the pt have substance abuse?: No - Immunizations Immunizations are current?: Yes - POLST Patient has POLST: No PD ED PE NORMAL - Vitals Vital signs reviewed: Yes - General General: Alert and oriented X 3, No acute distress, Well developed/nourished - HEENT HEENT: Moist mucous membranes - Neck Neck: Supple, no meningeal sign - Cardiac Cardiac: RRR, No murmur, No gallop, No rub - Respiratory Respiratory: No respiratory distress, Clear bilaterally - Abdomen Abdomen: Soft, Non tender - Derm Derm: Normal color, Warm and dry - Extremities Extremities: No edema - Neuro Neuro: Alert and oriented X 3 Eye Opening: Spontaneous Motor: Obeys Commands Verbal: Oriented GCS Score: 15 Results - Vitals Vitals: Oxygen O2 Source Room air - EKG (time done) No standard instances EKG releavant findings:: EKG personally interpreted by author of this note. Relevant findings are: Rate: Rate (enter#) (61) [place]: Normal Intervals: Normal ME QRS: Normal Ischemia: Normal ST segments, Q waves (III, aVF) - Labs Labs: Laboratory Tests 05/09/23 05/09/23 05/09/23 21:10 21:10 21:10 WBC 6.5 RBC 4.22 L Hgb 13.2 L Hct 39.1 L MCV 92.7 MCH 31.3 H MCHC 33.8 RDW 14.0 Plt Count 252 MPV 9.5 Neut # (Auto) 3.4 Lymph # (Auto) 2.5 [place] # (Auto) 0.6 Eos # (Auto) 0.1 Baso # (Auto) 0.0 Absolute Nucleated RBC 0.00 Nucleated RBC % 0.0 Sodium 139 Potassium 3.7 Chloride 106 Carbon Dioxide 24 Anion Gap 9.0 BUN 13 Creatinine 0.9 Estimated GFR (MDRD) 93 Glucose 111 H Calcium 9.9 Total Bilirubin 0.4 AST 20 ALT 31 Alkaline Phosphatase 72 Troponin I High Sens 4.8 Total Protein 7.3 Albumin 4.5 Globulin 2.8 Albumin/Globulin Ratio 1.6 Lipase 32 TSH 2.10 - Rads (name of study) chest xray Relevant Findings:: Prelim report reviewed, See rad report PD Medical Decision Making - ED course Complexity details: reviewed results, re-evaluated patient, considered differential, d/w patient ED course: Normal TSH, normal hs-cTn, unremarkable CBC, ER abdominal panel. No concerning nor diagnostic findings on EKG, CXR. Cause of symptoms is not apparent at this time. We discussed results, return precautions, and advised to follow up with PCP. Departure - Departure Disposition: 01 Home, Self Care Clinical Impression: Palpitations Condition: Good Instructions: ED Palpitations Comments: There were no concerning nor abnormal findings on tonight's test, including the blood tests, EKG, and chest x-ray. During your stay in the ER, you were kept on a potline monitor, and there were no abnormalities of your heart rhythm nor heart rate during your ER stay. The cause of your symptoms is not apparent at this time. As we discussed, pursue follow-up with cardiology; further testing will likely be helpful even if your symptoms do not recur. Forms: PCP List Discharge Date/Time: 05/09/23 22:51
[2023-05-09 21:16] LABS: BASOPHILS % (AUTO) 0.2 %; EOSINOPHILS # (AUTO) 0.1 10^3/uL (0.0-0.7); EOSINOPHILS % (AUTO) 1.2 %; HCT - HEMATOCRIT 39.1 % (42.0-52.0); HGB - HEMOGLOBIN 13.2 g/dL (14.0-18.0); LYMPHOCYTES # (AUTO) 2.5 10^3/uL (1.5-3.5); LYMPHOCYTES % (AUTO) 37.8 %; MEAN CORPUSCULAR HEMOGLOBIN 31.3 pg (27.0-31.0); MEAN CORPUSCULAR HGB CONC 33.8 g/dL (32.0-36.0); MEAN CORPUSCULAR VOLUME 92.7 fL (80.0-94.0); MEAN PLATELET VOLUME 9.5 fL (7.4-11.4); MONOCYTES # (AUTO) 0.6 10^3/uL (0.0-1.0); MONOCYTES % (AUTO) 8.6 %; NEUTROPHILS # (AUTO) 3.4 10^3/uL (1.5-6.6); PLT - PLATELET COUNT 252 10^3/uL (130-450); RED BLOOD COUNT 4.22 10^6/uL (4.70-6.10); WHITE BLOOD COUNT 6.5 x10^3/uL (4.8-10.8)
[2023-05-09 21:40] LABS: TROPONIN I HIGH SENSITIVITY 4.8 ng/L (2.3-19.7)
[2023-05-09 21:50] LABS: THYROID STIMULATING HORMONE 2.1 uIU/mL (0.34-5.60)
[2023-05-09 21:55] LABS: ALBUMIN 4.5 g/dL (3.2-5.5); ALBUMIN/GLOBULIN RATIO 1.6 (1.0-2.2); BILIRUBIN,TOTAL 0.4 mg/dL (0.2-1.0); CALCIUM 9.9 mg/dL (8.5-10.3); CREATININE 0.9 mg/dL (0.6-1.3); POTASSIUM 3.7 mmol/L (3.5-4.5); TOTAL PROTEIN 7.3 g/dL (6.4-8.9)
--- NOTE | 2023-05-09 21:58 | XRAY Report ---
PROCEDURE: Chest 2V INDICATIONS: palpitations TECHNIQUE: 2 views of the chest were acquired. COMPARISON: None. FINDINGS: Surgical changes and devices: None. Lungs and pleura: No pleural effusions or pneumothorax. Lungs are clear. Mediastinum: Mediastinal contours appear normal. Heart size is normal. Bones and chest wall: No suspicious bony lesions. Overlying soft tissues appear unremarkable. IMPRESSION: No acute cardiopulmonary process. Reviewed by: Antonio Blanca MD on 05/09/2023 9:57 PM [facility] Approved by: Antonio Blanca MD on 05/09/2023 9:57 PM [facility] Station ID: [id number]
[2023-05-09 22:44] VITALS: O2SAT 98
[2023-05-09 22:53] VITALS: BP 147/74
== END 2023-05-09 22:51 | disposition home or self-care (01) ==
LOC: ED 20:21
DX: R00.2 Palpitations (principal); I10 Essential (primary) hypertension; Z86.010 Personal history of colon polyps
CPT/HCPCS: 36415; 80053; 83690; 84443; 84484; 85025; 93005; 99283; 99284

== ENCOUNTER 2023-07-20 11:04 | Emergency (ER) | payer OTHER ==
--- NOTE | 2023-07-20 11:28 | ED Physician Documentation ---
PD HPI LOWER EXT INJURY - Stated complaint Stated Complaint: FT PX - Chief complaint Chief Complaint: Trauma Ext - History obtained from History obtained from: Patient - Additional information Additional information: He has a history of CML. He is on Gleevec for that. Last weekend he tripped while on a fishing trip with his family and hurt his left ankle but really was not bothering him in the interim until yesterday when he woke with more severe anterior left ankle pain. Pain is mild at rest but significant with bearing weight. No systemic symptoms such as fevers, chills, body aches. PD PAST MEDICAL HISTORY - Past Medical History Past Medical History: Yes Cardiovascular: Hypertension Respiratory: None Neuro: None Endocrine/Autoimmune: None GI: Colon polyps, Diverticulitis, Other : None HEENT: None Psych: Panic attacks, ADD/ADHD, Post traumatic stress disorder Musculoskeletal: None, Other Derm: None Other Past Medical History: leukemia - Past Surgical History Past Surgical History: Yes General: Bowel surgery, Colonoscopy Ortho: ACL reconstruction, Rotator cuff repair - Present Medications Home Medications: Ambulatory Orders Medication Instructions Recorded Confirmed Imatinib Mesylate [Gleevec] 400 mg PO DAILY 10/11/22 07/20/23 - Allergies Allergies/Adverse Reactions: Allergies Allergy/AdvReac Type Severity Reaction Status Date / Time No Known Drug Allergies Allergy Verified 07/20/23 11:14 - Social History Does the pt smoke?: No Smoking Status: Former smoker Does the pt drink ETOH?: No Does the pt have substance abuse?: No - Immunizations Immunizations are current?: Yes - POLST Patient has POLST: No PD ED PE NORMAL - Vitals Vital signs reviewed: Yes - General General: Alert and oriented X 3, No acute distress - Extremities Extremities: Other (Focally tender over the anterior joint line of the left ankle without malleoli or tenderness. The foot itself is nontender. There is no warmth or redness in the area. No obvious effusion of the joint. He has severe pain with forced plantarflexion of the left foot, but not with dorsiflexion.) - Neuro Neuro: Alert and oriented X 3, Normal speech - Psych Psych: Normal mood, Normal affect Results - Vitals Vitals: Vital Signs - 24 hr 07/20/23 11:15 Temperature 36.1 C L Heart Rate 76 Respiratory 16 Rate Blood Pressure 144/79 H O2 Saturation 100 Oxygen O2 Source Room air - Rads (name of study) Three-view x-ray of the left ankle was negative. Relevant Findings:: Final report received, EMP independent interpretation of test Procedures - Arthrocentesis Joint: Ankle, Left Preparation: Consent obtained, Sterile prep and drape Anesthesia: Lidocaine 1% PD Medical Decision Making - ED course ED course: Seems like an ankle sprain, that said the time course is not quite right. As such septic joint was considered. Although it did not really seem clinically like that either with no warmth or redness no fever. An arthrocentesis was attempted of the left ankle, but it was a "dry tap." And I think this rules out septic joint at this point. Departure - Departure Disposition: 01 Home, Self Care Clinical Impression: Left ankle sprain Qualifiers: Encounter type: initial encounter Involved ligament of ankle: unspecified ligament Qualified Code(s): S93.402A - Sprain of unspecified ligament of left ankle, initial encounter Condition: Good Record reviewed to determine appropriate education?: Yes Instructions: ED Sprain Ankle W X Ray Comments: As discussed, the x-ray looks okay and the fact that there was no fluid in the joint is reassuring against infection. If you were to worsen or develop fever, chills, body aches please return for reevaluation. Follow-up with your doctor if not better in about a week. Tylenol and/or ibuprofen as needed for pain. Forms: PCP List
[2023-07-20] MEDS: LIDOCAINE 1%-EPI 1:100000 20 ML MDV SUBQ STA (12:24)
--- NOTE | 2023-07-20 12:37 | XRAY Report ---
PROCEDURE: Ankle 3+V LT INDICATIONS: ankle pain TECHNIQUE: 3 views of the ankle were acquired. COMPARISON: None. FINDINGS: Bones: No fractures or dislocations. Ankle mortise is normally aligned. No suspicious bony lesions . Soft tissues: No tibiotalar joint effusion. Achilles tendon appears normal. IMPRESSION: No acute bony abnormality. Reviewed by: Sean Lott MD on 07/20/2023 11:36 AM [facility] Approved by: Sean Lott MD on 07/20/2023 11:36 AM [facility] Station ID: [id number]
[2023-07-20 13:02] VITALS: BP 155/88; O2SAT 97
== END 2023-07-20 13:03 | disposition home or self-care (01) ==
LOC: ED 11:04
DX: S93.402A Sprain of unspecified ligament of left ankle, initial encounter (principal); W18.40XA Slipping, tripping and stumbling without falling, unspecified, initial encounter; I10 Essential (primary) hypertension; Z87.891 Personal history of nicotine dependence
CPT/HCPCS: 20605; 99283